=== PATIENT | male | born 1960 | race Caucasian/White ===

== ENCOUNTER 2017-11-10 15:22 | Inpatient (IN) | payer OTHER ==
[~2017-11-10] VITALS: Ht 170.2 cm; Wt 108.9 kg
[~2017-11-10 15:22] MED LIST: ABI10 PO; ACET-787 PO; ALPR1TAB2 PO; ASPI325E46 PO; COZ50 PO; DIGO0.122 PO; DOXA2TAB32 PO; FENO145T PO; FLOR250 PO; FLUO-387 PO; FLUO5CRE TP; FURO-570 PO; GLIM1TAB6 PO; ICOS1SGL PO; ISOS30TA23 PO; LACT1.4C PO; LEVO500T98 PO; LEVO750T51 PO; MELO7.5T11 PO; METF850T PO; METR500T1 PO; MSCON15 PO; PRIM250T70 PO; TADA5TAB PO; TOLT1TAB12 PO; ZET10 PO
[2017-11-10 15:35] VITALS: BP 139/75
--- NOTE | 2017-11-10 15:51 | NUR ---
PT COMES TO ED C/O BILAT LEG PAIN, SWELLING/EDEMA, AND SOB WORSENING FOR PAST 2-3 WEEKS. PT WITH H/O CHF, STATES HIS LASIX IS NOT WORKING, NEITHER IS HIS PAIN MEDICATION. PT PALCED ON ALL MONITORS, VS WNL. PLACED ON 2L O2 VIA NC PER MD ORDER. +CSM TO BILAT LOWER EXT. PENDING MD ALBARADO
[2017-11-10] MEDS ORDERED: FUROSEMIDE 40 MG/4 ML VIAL IVP SCH (16:20)
[2017-11-10] MEDS ORDERED: HYDROmorphone PFS 2 MG/ML SYR IVP ONE (16:20)
--- NOTE | 2017-11-10 16:22 | NUR ---
Patient appears to be resting comfortably in bed. Vital Signs within normal limits. Respirations even and unlabored.
[2017-11-10 16:38] LABS: BASOPHILS # (AUTO) 0.1 K/uL (0.00-0.22); BASOPHILS % (AUTO) 0.9 % (0.0-2.0); EOSINOPHILS # (AUTO) 0.2 K/uL (0-0.4); EOSINOPHILS % (AUTO) 4.1 % (0.0-4.0); HEMOGLOBIN 12.8 g/dL (12.0-18.0); LYMPHOCYTES # (AUTO) 2.1 K/uL (2.0-11.5); LYMPHOCYTES % (AUTO) 35.3 % (20.5-51.1); MEAN CORPUSCULAR HEMOGLOBIN 30 pg (27-31); MEAN CORPUSCULAR HGB CONC 33 g/dL (33-37); MEAN CORPUSCULAR VOLUME 91.9 fL (80-94); MONOCYTES # (AUTO) 0.8 K/uL (0.8-1.0); MONOCYTES % (AUTO) 14.2 % (1.7-9.3); NEUTROPHILS # (AUTO) 2.7 K/uL (1.8-7.7); NEUTROPHILS % (AUTO) 45.5 % (42.2-75.2); PLATELET COUNT (AUTO) 170 K/uL (140-450); RED BLOOD CELL COUNT(AUTO) 4.25 MIL/uL (4.20-6.10); RED CELL DISTRIBUTION WIDTH 14.9 % (11.6-13.7); WHITE BLOOD COUNT (AUTO) 5.9 K/uL (4.8-10.8)
[2017-11-10 16:59] LABS: ANION GAP 8.9 (8-16); CARBON DIOXIDE 32.6 mmol/L (21-32); POTASSIUM 3.5 mmol/L (3.5-5.1)
[2017-11-10 17:05] LABS: TOTAL BILIRUBIN 0.4 mg/dL (0.0-1.0)
--- NOTE | 2017-11-10 17:52 | NUR ---
PTS URINARL FULL AT 1000ML, EMPTIED AND PLACED AND BEDSIDE. PT REQUESTING MORE PAIN MEDICATION FOR BILAT LEG PAIN. DR BEE NOTIFIED, NO NEW ORDERS RECEIVED.
[2017-11-10 17:59] LABS: CHOL/HDL RATIO 3.4 (1-4.5)
[2017-11-10] MEDS ORDERED: HYDROcodone/APAP 7.5/325 MG 1 TAB PO PRN (18:35)
[2017-11-10] MEDS ORDERED: ONDANSETRON 4 MG/2 ML VIAL IVP PRN (18:35)
[2017-11-10] MEDS ORDERED: ACETAMINOPHEN 325 MG TAB PO PRN (18:35)
--- NOTE | 2017-11-10 19:01 | NUR ---
DR BEE NOTIFIED OF ELEVATED DDIMER RESULTS, NO NEW ORDERS RECEIVED
--- NOTE | 2017-11-10 19:13 | NUR ---
REPORT GIVEN TO ARIA LYNCH
[2017-11-10 19:23] LABS: PROTHROMBIN TIME 9.9 secs (10.8-13.4)
[2017-11-10] MEDS ORDERED: MORPHINE SULFATE 5 MG/ML VIAL IVP ONE (19:25)
[2017-11-10 19:28] LABS: FREE T4 (FREE THYROXINE) 0.86 ng/dL (0.76-1.46); MAGNESIUM 1.9 mg/dL (1.8-2.4); PHOSPHORUS 4.1 mg/dL (2.5-4.9); THYROID STIMULATING HORMONE 0.89 uIU/mL (0.34-3.74)
--- NOTE | 2017-11-10 19:40 | NUR ---
RECEIVED PATIENT FROM ER VIA [facility]. ROUTINE ADMISSION CARE DONE. CARRY OUT ORDER.FALL PRECAUTION IMPLEMENTED. DISCUSS PLAN OF CARE. CALL LIGHTS WITHIN REACH. WILL CONTINUE TO MONITOR.
--- NOTE | 2017-11-10 19:42 | NUR ---
Pt report given to KAVON KNAPP. Transfer of care at this time.
[2017-11-10 20:00] VITALS: BP 138/66
[2017-11-10] MEDS ORDERED: MORPHINE TAB ER 15 MG TABER PO PRN (20:25)
[2017-11-10] MEDS ORDERED: ALPRAZolam 0.5 MG TAB PO PRN (20:25)
[2017-11-10] MEDS ORDERED: DEXTROSE 50% 50 ML SYR IVP PRN (20:35)
[2017-11-10] MEDS: metFORMIN 850 MG TAB PO SCH ×2 (21:00→21:44)
[2017-11-10] MEDS ORDERED: ARIPiprazole 10 MG TAB PO SCH (21:00)
[2017-11-10] MEDS: ZOLPIDEM 10 MG TAB PO SCH (21:43)
[2017-11-10] MEDS: EZETIMIBE 10 MG TAB PO SCH (21:44)
[2017-11-10] MEDS: DOCUSATE SODIUM 100 MG GELCAP PO SCH (21:45)
[2017-11-10] MEDS: BLOOD GLUCOSE MONITORING 1 DEV DEV FS SCH (21:54)
[2017-11-10] MEDS: DOXAZOSIN 2 MG TAB PO SCH (21:55)
--- NOTE | 2017-11-10 22:10 | NUR ---
SEEN PATIENT ASLEEP IN BED. FALL PRECAUTION IMPLEMENTED .CALL LIGHTS WITHIN REACH. WILL CONTINUE TO MONITOR.
[2017-11-11] VITALS: BP 107/53
[2017-11-11] MEDS: HYDROcodone/APAP 10/325 MG 1 TAB TAB PO PRN ×3 (01:04→12:02)
[2017-11-11] MEDS ORDERED: MORPHINE TAB ER 15 MG TABER PO ONE (02:59)
[2017-11-11 04:00] VITALS: BP 119/59
--- NOTE | 2017-11-11 05:30 | NUR ---
SEEN PATIENT SITTING IN THE SIDE OF THE BED JUST GET OUT FROM THE BATHROOM. ASSIST PATIENT BACK TO BED WITH OXYGEN ON 2L NC. BED IN LOW POSITION. CALL LIGHT WITHIN REACH. WILL CONTINUE TO MONITOR.
[2017-11-11] MEDS: BLOOD GLUCOSE MONITORING 1 DEV DEV FS SCH ×4 (05:48→21:27)
--- NOTE | 2017-11-11 07:14 | NUR ---
RECEIVED REPORT FROM NIGHTSHIFT NURSE AT BEDSIDE. PATIENT IS ASLEEP BUT AROUSABLE TO NAME. PATIENT IS ON 2LITERS VIA NASAL CANNULA. PATIENT PRESENTS IN SEMI-FOWLERS POSITION WITH BREATHING SYMMETRICAL AND UNLABORED. PATIENT HAS AN IV ON HIS RIGHT HAND 20G SALINE LOCKED. PATIENT HAS SWELLING OF BILATERAL LEGS WITH PAIN UPON PALPATION. PATIENT HAS 2+ PITTING EDEMA. CALL LIGHT WITHIN REACH OF PATIENT. INSTRUCTED PATIENT TO CALL IF HE NEEDS HELP AMBULATING. APPROPRIATE SIGNS OUTSIDE OF PATIENT'S ROOM. WILL CONTINUE TO MONITOR PATIENT.
--- NOTE | 2017-11-11 07:14 | NUR ---
ENDORSED PATIENT TO AM SHIFT RN FOR CONTINUITY OF CARE. PATIENT IN STABLE CONDITION.
[2017-11-11 07:21] LABS: BASOPHILS % (AUTO) 0.8 % (0.0-2.0); EOSINOPHILS # (AUTO) 0.3 K/uL (0-0.4); EOSINOPHILS % (AUTO) 4.5 % (0.0-4.0); HEMATOCRIT 41.4 % (36-52); HEMOGLOBIN 13.6 g/dL (12.0-18.0); LYMPHOCYTES # (AUTO) 2.1 K/uL (2.0-11.5); LYMPHOCYTES % (AUTO) 35.7 % (20.5-51.1); MEAN CORPUSCULAR HEMOGLOBIN 30 pg (27-31); MEAN CORPUSCULAR HGB CONC 33 g/dL (33-37); MEAN CORPUSCULAR VOLUME 91.1 fL (80-94); MONOCYTES # (AUTO) 0.8 K/uL (0.8-1.0); NEUTROPHILS # (AUTO) 2.6 K/uL (1.8-7.7); PLATELET COUNT (AUTO) 178 K/uL (140-450); RED BLOOD CELL COUNT(AUTO) 4.54 MIL/uL (4.20-6.10); WHITE BLOOD COUNT (AUTO) 5.9 K/uL (4.8-10.8)
[2017-11-11 07:26] LABS: ANION GAP 11.4 (8-16); CARBON DIOXIDE 30.3 mmol/L (21-32); CREATININE 0.9 mg/dL (0.7-1.3); POTASSIUM 3.7 mmol/L (3.5-5.1)
[2017-11-11] MEDS ORDERED: metFORMIN 850 MG TAB PO SCH (07:38)
[2017-11-11 07:40] LABS: MAGNESIUM 1.9 mg/dL (1.8-2.4); PHOSPHORUS 4.6 mg/dL (2.5-4.9)
[2017-11-11 08:00] VITALS: BP 107/54
[2017-11-11] MEDS ORDERED: FLUoxetine 20 MG CAP PO SCH (09:00)
[2017-11-11] MEDS ORDERED: TOLTERODINE LA 4 MG CAPER PO SCH (09:00)
[2017-11-11] MEDS ORDERED: PRIMIDONE 250 MG TAB PO SCH (09:00)
[2017-11-11] MEDS ORDERED: FENOFIBRATE 48 MG TAB PO SCH (09:00)
[2017-11-11] MEDS ORDERED: ASPIRIN 325 MG TABEC PO SCH (09:00)
[2017-11-11] MEDS ORDERED: PRIMIDONE 50 MG TAB PO SCH (09:00)
[2017-11-11] MEDS ORDERED: LOSARTAN 50 MG TAB PO SCH (09:00)
[2017-11-11] MEDS ORDERED: DIGOXIN 0.125 MG TAB PO SCH (09:00)
[2017-11-11] MEDS ORDERED: FUROSEMIDE 40 MG/4 ML VIAL IVP SCH (09:00)
[2017-11-11] MEDS ORDERED: ECOTRIN 81 MG TABEC PO SCH (09:00)
[2017-11-11] MEDS: GLIMEPIRIDE 2 MG TAB PO SCH (09:05)
[2017-11-11] MEDS: ISOSORBIDE DINITRATE 10 MG TAB PO SCH ×3 (09:06→17:00)
[2017-11-11] MEDS: DOCUSATE SODIUM 100 MG GELCAP PO SCH ×2 (09:11→21:19)
--- NOTE | 2017-11-11 09:24 | NUR ---
PATIENT TOOK ALL AM MEDICATIONS. HELD LANOXIN BECAUSE OF PATIENT'S DECREASED PULSE. PATIENT SHOWS NO RESPIRATORY DISTRESS. ENCOURAGED PATIENT TO SIT IN HIGH FOWLERS POSITION TO HELP HIM BREATHE BETTER. PATIENT UNDERSTOOD INSTRUCTIONS. WILL CONTINUE TO MONITOR PATIENT.
--- NOTE | 2017-11-11 11:22 | NUR ---
PATIENT RESTING AT THIS TIME. NO RESPIRATORY DISTRESS. WILL CONTINUE TO MONITOR PATIENT.
--- NOTE | 2017-11-11 11:36 | NUR ---
CM NOTE INITIAL REVIEW DONE
[2017-11-11 12:00] VITALS: BP 133/83
--- NOTE | 2017-11-11 13:00 | NUR ---
PATIENT AT BEDSIDE. WANTS TO TALK TO ATTENDING REGARDING PATIENT'S MEDICATION. WILL NOTIFY
[2017-11-11] MEDS ORDERED: ALPR1TAB2 PO (13:38)
[2017-11-11] MEDS ORDERED: MORPHINE TAB ER 15 MG TABER PO PRN (13:40)
[2017-11-11] MEDS ORDERED: ALPRAZolam 0.5 MG TAB PO PRN ×2 (13:45→17:20)
--- NOTE | 2017-11-11 14:06 | NUR ---
PATIENT AT BEDSIDE. PATIENT IS ASLEEP AT THIS TIME. NO COMPLAINTS. BLOOD PRESSURE STABLE. ADMINISTERED ISOSORBIDE TO PATIENT. WILL CONTINUE TO MONITOR PATIENT.
[2017-11-11] MEDS ORDERED: FUROSEMIDE 20 MG/2 ML VIAL IVP SCH (14:08)
--- NOTE | 2017-11-11 14:20 | NUR ---
PATIENT BLOOD PRESSURE IS 102/49, 65. HELD PATIENT'S LASIX 20MG/2ML. PATIENT IS ASYMPTOMATIC. PATIENT AT BEDSIDE. WILL CONTINUE TO MONITOR PATIENT.
--- NOTE | 2017-11-11 14:57 | NUR ---
PATIENT HAS BEEN SCREENED AND CATEGORIZED MODERATE NUTRITION RISK. PATIENT WILL BE SEEN WITHIN 3-5 DAYS OF ADMISSION. 11/14/17 - 11/16/[address]
[2017-11-11 16:00] VITALS: BP 114/51
--- NOTE | 2017-11-11 16:00 | NUR ---
PATIENT ASLEEP AT THIS TIME. NO COMPLAINTS OF PAIN. WILL CONTINUE TO MONITOR PATIENT.
[2017-11-11] MEDS ORDERED: FUROSEMIDE 40 MG TAB PO SCH (17:00)
[2017-11-11] MEDS: FUROSEMIDE 40 MG/4 ML VIAL IVP SCH (17:26)
--- NOTE | 2017-11-11 19:25 | NUR ---
GAVE REPORT TO NIGHTSHIFT NURSE AT BEDSIDE. PATIENT IN STABLE CONDITION.
--- NOTE | 2017-11-11 19:25 | NUR ---
RECEIVED PATIENT REPORT AT BEDSIDE. PATIENT AWAKE AND ALERT. NO S/S OF DISTRESS. PATIENT ON HIS CPAP. IV LINE NOTED TO THE LEFT HAND SALINE LOCKED. PATIENT ON TELE MONITORING. BED LOWERED WITH CALL LIGHT WITHIN REACH. WILL CONTINUE TO MONITOR
[2017-11-11 20:00] VITALS: BP 100/42
[2017-11-11] MEDS: DOXAZOSIN 2 MG TAB PO SCH (21:00)
[2017-11-11] MEDS: ZOLPIDEM 10 MG TAB PO SCH (21:20)
[2017-11-11] MEDS: MORPHINE TAB ER 30 MG TABER PO SCH (21:20)
[2017-11-11] MEDS: EZETIMIBE 10 MG TAB PO SCH (21:20)
[2017-11-11 21:23] LABS: APPEARANCE,URINE CLEAR (CLEAR); BILIRUBIN,URINE NEGATIVE (NEGATIVE); BLOOD, URINE NEGATIVE (NEGATIVE); COLOR,URINE YELLOW (YELLOW); LEUKOCYTE ESTERASE ,URINE NEGATIVE (NEGATIVE); NITRITE, URINE NEGATIVE (NEGATIVE); UGLUCOSE NEGATIVE (NEGATIVE)
[2017-11-11 21:49] LABS: BARBITURATE, URINE NEG. ng/ml (NEG <=200); BENZODIAZEPINE, URINE POS. ng/mL (NEG <=200); CANNABINOID, URINE POS. ng/mL (NEG <=50); COCAINE, URINE NEG. ng/mL (NEG <=300); OPIATE, URINE POS. ng/mL (NEG <=2000); PHENCYCLIDINE SCREEN,URINE NEG. ng/mL (NEG <=25)
--- NOTE | 2017-11-11 23:28 | NUR ---
PATIENT ASLEEP IN BED. NO S/S OF DISTRESS NOTED
[2017-11-12] VITALS: BP 99/47
[2017-11-12 04:00] VITALS: BP 103/55
--- NOTE | 2017-11-12 04:00 | NUR ---
PATIENT ASLEEP WHILE SITTING IN THE CHAIR AT BEDSIDE. NO S/S OF DISTRESS NOTED
[2017-11-12] MEDS: BLOOD GLUCOSE MONITORING 1 DEV DEV FS SCH ×4 (06:16→21:22)
--- NOTE | 2017-11-12 07:29 | NUR ---
PATIENT REPORT GIVEN AT BEDSIDE. PATIENT ENDORSED IN STABLE CONDITION
--- NOTE | 2017-11-12 07:30 | NUR ---
RECEIVED REPORT FROM SHUTTLE INSPECTOR NURSE. PATIENT IS AAOX4. PATIENT IS ON CPAP MACHINE. NO S/S OF ACUTE DISTRESS. IV ON HIS RIGHT HAND 20G, SL, FLUSHED, ASYMPTOMATIC. EDEMA 2+ NOTED TO BILATERAL LEGS WITH PAIN UPON PALPATION. CALL LIGHT WITHIN REACH OF PATIENT. INITIAL ASSESSMENT DONE. PLAN OF FALL PRECAUTIONS IN PLACE. BED IN LOW POSITION. WILL CONTINUE TO MONITOR.
[2017-11-12 08:00] VITALS: BP 118/61
[2017-11-12] MEDS: ISOSORBIDE DINITRATE 10 MG TAB PO SCH ×3 (08:40→17:35)
[2017-11-12 08:41] LABS: BASOPHILS % (AUTO) 0.7 % (0.0-2.0); EOSINOPHILS # (AUTO) 0.2 K/uL (0-0.4); EOSINOPHILS % (AUTO) 4.2 % (0.0-4.0); HEMATOCRIT 40.6 % (36-52); HEMOGLOBIN 13.6 g/dL (12.0-18.0); LYMPHOCYTES # (AUTO) 1.6 K/uL (2.0-11.5); LYMPHOCYTES % (AUTO) 27.7 % (20.5-51.1); MEAN CORPUSCULAR HEMOGLOBIN 31 pg (27-31); MEAN CORPUSCULAR HGB CONC 34 g/dL (33-37); MEAN CORPUSCULAR VOLUME 91.6 fL (80-94); MONOCYTES # (AUTO) 0.8 K/uL (0.8-1.0); MONOCYTES % (AUTO) 13.1 % (1.7-9.3); NEUTROPHILS # (AUTO) 3.1 K/uL (1.8-7.7); NEUTROPHILS % (AUTO) 54.3 % (42.2-75.2); PLATELET COUNT (AUTO) 187 K/uL (140-450); RED BLOOD CELL COUNT(AUTO) 4.43 MIL/uL (4.20-6.10); RED CELL DISTRIBUTION WIDTH 14.6 % (11.6-13.7); WHITE BLOOD COUNT (AUTO) 5.8 K/uL (4.8-10.8)
[2017-11-12] MEDS: MORPHINE TAB ER 30 MG TABER PO SCH ×2 (08:41→21:19)
[2017-11-12] MEDS: GLIMEPIRIDE 2 MG TAB PO SCH (08:42)
[2017-11-12] MEDS: FUROSEMIDE 40 MG/4 ML VIAL IVP SCH ×2 (08:46→17:35)
[2017-11-12] MEDS ORDERED: DEXAMETHASONE 10 MG/ML VIAL IVP SCH (08:50)
[2017-11-12] MEDS: DIGOXIN 0.125 MG TAB PO SCH (08:54)
[2017-11-12] MEDS: DOCUSATE SODIUM 100 MG GELCAP PO SCH ×2 (09:00→21:18)
[2017-11-12 09:20] LABS: ANION GAP 10.7 (8-16); CARBON DIOXIDE 29.8 mmol/L (21-32); CREATININE 0.8 mg/dL (0.7-1.3); POTASSIUM 3.5 mmol/L (3.5-5.1)
[2017-11-12 09:27] LABS: MAGNESIUM 1.8 mg/dL (1.8-2.4); PHOSPHORUS 4.3 mg/dL (2.5-4.9)
--- NOTE | 2017-11-12 11:00 | NUR ---
PT STATED THE DECADRON HELP HIM A LOT WITH BACK PAIN. DISCUSSED WITH DR HENRIQUEZ AND MD WILL TAPER IT OFF.
[2017-11-12 12:00] VITALS: BP 120/62
--- NOTE | 2017-11-12 12:20 | NUR ---
PT SAT DOWN ON CHAIR AND EATING LUNCH. NO S/S OF ACUTE DISTRESS.
[2017-11-12] MEDS: HYDROcodone/APAP 10/325 MG 1 TAB TAB PO PRN (14:57)
[2017-11-12 16:00] VITALS: BP 116/65
[2017-11-12] MEDS: INSULIN LISPRO SLIDING SCALE 100 UNITS/ML VIAL SUBQ PRN ×2 (17:43→21:34)
--- NOTE | 2017-11-12 19:15 | NUR ---
RECEIVED PATIENT REPORT AT BEDSIDE. PATIENT AWAKE, ALERT AND ORIENTED. NO S/S OF DISTRESS. PATIENT ON ROOM AIR. NO SOB. PATIENT ON TELE MONITORING. IV LINE NOTED TO HIS LEFT HAND SALINE LOCKED. BED LOWERED WITH CALL LIGHT WITHIN REACH. WILL CONTINUE TO MONITOR
--- NOTE | 2017-11-12 19:30 | NUR ---
ENDORSED PT TO STRIPPER CUTTER MACHINE RN, PT IN STABLE CONDITION.
[2017-11-12 19:42] VITALS: BP 127/76
--- NOTE | 2017-11-12 21:15 | NUR ---
PATIENT SITTING ON THE CHAIR AT BEDSIDE. ADMINISTERED DUE MEDICATIONS. WILL CONTINUE TO MONITOR
[2017-11-12] MEDS: EZETIMIBE 10 MG TAB PO SCH (21:18)
[2017-11-12] MEDS: ZOLPIDEM 10 MG TAB PO SCH (21:19)
[2017-11-12] MEDS: DOXAZOSIN 2 MG TAB PO SCH (21:20)
[2017-11-13] VITALS: BP 111/66
[2017-11-13] MEDS: HYDROcodone/APAP 10/325 MG 1 TAB TAB PO PRN (00:41)
--- NOTE | 2017-11-13 02:00 | NUR ---
PATIENT ASLEEP IN BED. NO S/S OF DISTRESS NOTED
[2017-11-13 04:00] VITALS: BP 126/65
[2017-11-13] MEDS: BLOOD GLUCOSE MONITORING 1 DEV DEV FS SCH ×2 (06:02→12:19)
[2017-11-13] MEDS: INSULIN LISPRO SLIDING SCALE 100 UNITS/ML VIAL SUBQ PRN (06:04)
--- NOTE | 2017-11-13 07:16 | NUR ---
PATIENT REPORT GIVEN AT BEDSIDE. PATIENT ENDORSED IN STABLE CONDITION
--- NOTE | 2017-11-13 07:30 | NUR ---
RECEIVED REPORT FROM FREELANCE DESIGNER NURSE. PATIENT IS AAOX4. PATIENT IS ON CPAP MACHINE. NO S/S OF ACUTE DISTRESS. IV ON HIS RIGHT HAND 20G, SL, FLUSHED, ASYMPTOMATIC. EDEMA 2+ NOTED TO BILATERAL LEGS WITH PAIN UPON PALPATION. CALL LIGHT WITHIN REACH OF PATIENT. INITIAL ASSESSMENT DONE. PLAN OF FALL PRECAUTIONS IN PLACE. BED IN LOW POSITION. WILL CONTINUE TO MONITOR.
[2017-11-13 08:00] VITALS: BP 132/70
--- NOTE | 2017-11-13 08:10 | NUR ---
PT SITING IN CHAIR AND EATING BREAKFAST. NO S/S OF DISTRESS.
[2017-11-13 08:22] LABS: BASOPHILS # (AUTO) 0.2 K/uL (0.00-0.22); HEMOGLOBIN 14.6 g/dL (12.0-18.0); MEAN CORPUSCULAR VOLUME 91.3 fL (80-94); MONOCYTES # (AUTO) 0.6 K/uL (0.8-1.0); NEUTROPHILS # (AUTO) 7.7 K/uL (1.8-7.7)
[2017-11-13 08:32] LABS: EOSINOPHILS % (AUTO) 0.1 % (0.0-4.0); LYMPHOCYTES # (AUTO) 1.3 K/uL (2.0-11.5); MEAN CORPUSCULAR HEMOGLOBIN 30 pg (27-31); MEAN CORPUSCULAR HGB CONC 33 g/dL (33-37); MONOCYTES % (AUTO) 6.5 % (1.7-9.3); RED BLOOD CELL COUNT(AUTO) 4.92 MIL/uL (4.20-6.10); RED CELL DISTRIBUTION WIDTH 14.1 % (11.6-13.7); WHITE BLOOD COUNT (AUTO) 9.8 K/uL (4.8-10.8)
[2017-11-13 08:34] LABS: ANION GAP 10.1 (8-16); CARBON DIOXIDE 29.9 mmol/L (21-32); CREATININE 0.8 mg/dL (0.7-1.3)
[2017-11-13] MEDS: DOCUSATE SODIUM 100 MG GELCAP PO SCH (08:40)
[2017-11-13] MEDS: ISOSORBIDE DINITRATE 10 MG TAB PO SCH ×2 (08:41→13:13)
[2017-11-13] MEDS: GLIMEPIRIDE 2 MG TAB PO SCH (08:41)
[2017-11-13] MEDS: MORPHINE TAB ER 30 MG TABER PO SCH (08:41)
[2017-11-13] MEDS: FUROSEMIDE 40 MG/4 ML VIAL IVP SCH (08:42)
[2017-11-13] MEDS: DIGOXIN 0.125 MG TAB PO SCH (08:42)
[2017-11-13 08:44] LABS: PHOSPHORUS 4.2 mg/dL (2.5-4.9)
[2017-11-13 08:57] LABS: PLATELET COUNT (AUTO) 229 K/uL (140-450)
[2017-11-13 08:58] LABS: LYMPHOCYTES % (AUTO) 13.2 % (20.5-51.1); NEUTROPHILS % (AUTO) 78.2 % (42.2-75.2)
[2017-11-13] MEDS ORDERED: FURO-570 PO (11:24)
[2017-11-13] MEDS ORDERED: PRED10TA5 PO (11:24)
[2017-11-13 12:00] VITALS: BP 143/85
--- NOTE | 2017-11-13 12:05 | NUR ---
VITALS TAKEN. NO S/S OF ACUTE DISTRESS.
--- NOTE | 2017-11-13 13:00 | NUR ---
DISCHARGE PER MD ORDER. DISCHARGE INSTRUCTIONS AND MED TEACHING GIVEN. NO S/S OF ACUTE DISTRESS AT THIS TIME. BACK PAIN 10/08 TOLERABLE. RX PROVIDED. PT VERBALIZED UNDERSTANDING. PT PACKED ALL HIS BELONGINGS. WAITING FOR HIS . ALL DISCHARGE PAPER SIGNED.
--- NOTE | 2017-11-13 15:40 | NUR ---
IS HERE TO PIT TANNER PT. IV CATH DC'D, TIP INTACT, PRESSURE APPLIED. WRIST BAND REMOVED. WHEEL PT TO HIS VEHICLE. NO S/S OF ACUTE DISTRESS.
== END 2017-11-13 15:50 | disposition home or self-care (01) | DRG 291 ==
LOC: MED 15:22 → MTU 18:39
PROVIDERS: ADMIT Family Medicine Sports Medicine; ATTEND Family Medicine Sports Medicine
DX: I11.0 Hypertensive heart disease with heart failure (principal); N17.0 Acute kidney failure with tubular necrosis; E44.0 Moderate protein-calorie malnutrition; D68.59 Other primary thrombophilia; E11.51 Type 2 diabetes mellitus with diabetic peripheral angiopathy without gangrene; I50.43 Acute on chronic combined systolic (congestive) and diastolic (congestive) heart failure; E78.5 Hyperlipidemia, unspecified; G47.33 Obstructive sleep apnea (adult) (pediatric); F41.8 Other specified anxiety disorders; N40.0 Benign prostatic hyperplasia without lower urinary tract symptoms; M48.00 Spinal stenosis, site unspecified; F32.9 Major depressive disorder, single episode, unspecified; G47.00 Insomnia, unspecified; G89.29 Other chronic pain; M54.9 Dorsalgia, unspecified; E66.9 Obesity, unspecified; M47.9 Spondylosis, unspecified; Z95.0 Presence of cardiac pacemaker; Z83.3 Family history of diabetes mellitus; Z82.49 Family history of ischemic heart disease and other diseases of the circulatory system; I25.2 Old myocardial infarction; Z74.01 Bed confinement status; Z88.0 Allergy status to penicillin; Z88.8 Allergy status to other drugs, medicaments and biological substances; Z68.37 Body mass index [BMI] 37.0-37.9, adult; Z79.84 Long term (current) use of oral hypoglycemic drugs; Z79.899 Other long term (current) drug therapy; Z79.82 Long term (current) use of aspirin
CPT/HCPCS: 36415; 71045; 80048; 80053; 80162; 80305; 81003; 82150; 82550; 82553; 82948; 83036; 83690; 83735; 83880; 84100; 84439; 84443; 84484; 85025; 85379; 85610; 85730; 87081; 93005; 93925; 93970; 96374; 96375; 99285; J1100; J1170; J1815; J1940; Q0092

== ENCOUNTER 2018-01-16 13:46 | Inpatient (IN) | payer OTHER ==
[~2018-01-16] VITALS: Ht 167.6 cm; Wt 112.9 kg
[~2018-01-16 13:46] MED LIST changes: -FLOR250 PO; -LACT1.4C PO; -LEVO500T98 PO; -LEVO750T51 PO; -METR500T1 PO; +PRED10TA5 PO
[2018-01-16 13:49] VITALS: BP 147/77
--- NOTE | 2018-01-16 14:02 | NUR ---
PT COMES TO ER FROM HOME S/P SLIP AND FALL SECONDARY TO WATER ON THE FLOOR. C/O RT SHOULDER AND LEFT LEG PAIN. NO OBVIOUS DEFORMITY NOTED. RESP EVEN AND UNLABORED, PT DENIES ANY ACUTE CHEST PAIN, BUT DOES REPORTS SOB. DENIES NUMBNESS/TINGLING. DENIES ANY FEVERS /CHILLS. PT DOES REPORT CHF AND INCREASED EDEMA FOR THE LAST SEVERAL DAYS. SKIN W/D/I. +2 PEDAL EDEMA. LS-CLR CECILIA. ABD LARGE, DISTENDED, BUT NORMAL FOR PT, SOFT, NON TENDER IN PALPATION. IV SL TO BE INSERTED, EKG DONE AT BEDSIDE.
--- NOTE | 2018-01-16 14:06 | NUR ---
DR SUAZO AT BEDSIDE FOR EXAM.
[2018-01-16] MEDS ORDERED: ASPIRIN 81 MG TAB.CHEW PO ONE (14:15)
[2018-01-16] MEDS ORDERED: MORPHINE SULFATE 2 MG/ML SYR IVP ONE ×2 (14:15→15:30)
[2018-01-16] MEDS ORDERED: NITROGLYCERIN 2% 1 GM PKT TP ONE (14:15)
[2018-01-16] MEDS ORDERED: METOCLOPRAMIDE 10 MG/2 ML INJ VIAL IVP ONE (14:15)
[2018-01-16 14:30] LABS: BASOPHILS # (AUTO) 0.1 K/uL (0.00-0.22); BASOPHILS % (AUTO) 0.8 % (0.0-2.0); EOSINOPHILS # (AUTO) 0.4 K/uL (0-0.4); EOSINOPHILS % (AUTO) 4.1 % (0.0-4.0); LYMPHOCYTES # (AUTO) 2.8 K/uL (2.0-11.5); LYMPHOCYTES % (AUTO) 31.2 % (20.5-51.1); MEAN CORPUSCULAR HEMOGLOBIN 30 pg (27-31); MEAN CORPUSCULAR HGB CONC 34 g/dL (33-37); MEAN CORPUSCULAR VOLUME 87.9 fL (80-94); MONOCYTES # (AUTO) 1.2 K/uL (0.8-1.0); MONOCYTES % (AUTO) 12.8 % (1.7-9.3); NEUTROPHILS # (AUTO) 4.6 K/uL (1.8-7.7); NEUTROPHILS % (AUTO) 51.1 % (42.2-75.2); PLATELET COUNT (AUTO) 232 K/uL (140-450); RED BLOOD CELL COUNT(AUTO) 3.98 MIL/uL (4.20-6.10); RED CELL DISTRIBUTION WIDTH 15.7 % (11.6-13.7)
--- NOTE | 2018-01-16 15:02 | NUR ---
Patient appears to be resting comfortably in bed. Vital Signs within normal limits. Respirations even and unlabored. AROUSABLE TO VOICE. PENDING LABS/XRAY
[2018-01-16 15:08] LABS: ANION GAP 8.9 (8-16); CARBON DIOXIDE 31.6 mmol/L (21-32); CREATININE 0.9 mg/dL (0.7-1.3); POTASSIUM 3.5 mmol/L (3.5-5.1)
[2018-01-16 15:13] LABS: ALBUMIN 3.2 g/dL (3.4-5.0); TOTAL BILIRUBIN 0.4 mg/dL (0.0-1.0)
[2018-01-16] MEDS ORDERED: ONDANSETRON 4 MG/2 ML VIAL IM/IVP PRN (16:10)
[2018-01-16] MEDS ORDERED: HYDROcodone/APAP 7.5/325 MG 1 TAB PO PRN (16:10)
[2018-01-16] MEDS ORDERED: NACL 0.9% 1,000 ML IV SCH (16:10)
[2018-01-16] MEDS ORDERED: ACETAMINOPHEN 325 MG TAB PO PRN (16:10)
[2018-01-16] MEDS ORDERED: DOCUSATE SODIUM 100 MG GELCAP PO PRN (16:10)
[2018-01-16 16:47] LABS: PROTHROMBIN TIME 10.6 secs (10.8-13.4)
--- NOTE | 2018-01-16 16:49 | NUR ---
Patient will be admitted to care of DR REESE. Admited to TELE. Will go to [id number]. Belongings list completed. Report to GERRY KNAPP.
[2018-01-16 16:50] VITALS: BP 121/71
--- NOTE | 2018-01-16 16:50 | NUR ---
PATIENT ARRIVED FROM ER BED/GURNEY, ABLE TO AMBULATE WITH STEADY GAIT FROM ER BED/GURNEY TO RUST BED. NO DISTRESS NOTED. RESPIRATIONS EVEN, UNLABORED, ON ROOM AIR. AAOX4, CALM, COOPERATIVE, SKIN COLOR APPROPRIATE TO ETHNICITY, WARM TO TOUCH. SKIN IS INTACT. LUNGS CTA ON ALL LOBES. ABDOMEN SOFT, NON-DISTENDED. +3 PITTING B/L LE EDEMA NOTED. IV SITE INTACT, PATENT, ON SALINE LOCK. ORIENTED PATIENT TO ROOM AND CALL LIGHT. REVIEWED PLAN OF CARE WITH PATIENT. SAFETY MEASURES IN PLACE, CALL LIGHT WITHIN REACH. WILL CONTINUE TO MONITOR.
[2018-01-16 17:00] LABS: MAGNESIUM 1.7 mg/dL (1.8-2.4); PHOSPHORUS 3.5 mg/dL (2.5-4.9); THYROID STIMULATING HORMONE 0.6 uIU/mL (0.34-3.74)
[2018-01-16] MEDS ORDERED: FUROSEMIDE 40 MG/4 ML VIAL IVP SCH (18:19)
[2018-01-16] MEDS ORDERED: INSULIN LISPRO SLIDING SCALE 100 UNITS/ML VIAL SUBQ PRN (18:20)
[2018-01-16] MEDS ORDERED: DEXTROSE 50% 50 ML SYR IVP PRN (18:20)
--- NOTE | 2018-01-16 18:33 | NUR ---
PATIENT SITTING IN BEDSIDE CHAIR. NO DISTRESS NOTED. COMPLAINTS OF 5/10 ON B/L MD TORITO ALREADY AWARE AND IS PERFORMING MEDICATION RECONCILIATION. SCHEDULED MEDICATIONS DUE GIVEN. SAFETY MEASURES IN PLACE, CALL LIGHT WITHIN REACH. WILL CONTINUE TO MONITOR.
[2018-01-16 18:40] LABS: APPEARANCE,URINE CLEAR (CLEAR); BILIRUBIN,URINE NEGATIVE (NEGATIVE); BLOOD, URINE NEGATIVE (NEGATIVE); LEUKOCYTE ESTERASE ,URINE NEGATIVE (NEGATIVE); NITRITE, URINE NEGATIVE (NEGATIVE); UGLUCOSE NEGATIVE (NEGATIVE)
[2018-01-16 18:43] LABS: COLOR,URINE STRAW (YELLOW)
[2018-01-16 18:48] LABS: BARBITURATE, URINE NEG. ng/ml (NEG <=200); BENZODIAZEPINE, URINE POS. ng/mL (NEG <=200); CANNABINOID, URINE POS. ng/mL (NEG <=50); COCAINE, URINE NEG. ng/mL (NEG <=300); OPIATE, URINE POS. ng/mL (NEG <=2000); PHENCYCLIDINE SCREEN,URINE NEG. ng/mL (NEG <=25)
[2018-01-16] MEDS ORDERED: MORPHINE TAB ER 15 MG TABER PO SCH ×2 (19:00→21:00)
--- NOTE | 2018-01-16 19:34 | NUR ---
GAVE REPORT TO SEAMAN OFFICER NURSE FOR CONTINUITY OF CARE. PATIENT IN STABLE CONDITION.
--- NOTE | 2018-01-16 19:35 | NUR ---
RECEIVED REPORT FROM DAY SHIFT NURSE NICOLAS-RN. AAOX4, ON ROOM AIR WITH IV ON LEFT FA #20G-SL. +3 PITTING B/L LE EDEMA NOTED. NO S/S OF RESPIRATORY DISTRESS NOTED HOWEVER PT IN PAIN THAT IS INCREASING. WILL BE ADMINISTERING SCHEDULED PAIN MEDICATION. DISCUSSED PLAN OF CARE AND PT VERBALIZED UNDERSTANDING. UPDATED WHITE BOARD. BED IN LOWEST POSITION, BED BREAKS ON, SIDE RAILS UP. BED SIDE TABLE AND CALL LIGHT WITHIN REACH. WILL CONTINUE TO MONITOR.
--- NOTE | 2018-01-16 19:58 | NUR ---
CHECKED ON PATIENT. PT HAS CPAP NOC ORDER. PT STATED HE WANTS TO START USING AROUND 2130. WILL COME AT THIS TIME AND START CPAP.
[2018-01-16 20:00] VITALS: BP 120/56
[2018-01-16] MEDS ORDERED: MAG SULF 2000 MG/WATER PREMIX 50 ML IV SCH (20:00)
--- NOTE | 2018-01-16 20:00 | NUR ---
VITAL SIGNS TAKEN AND BLOOD GLUCOSE 111-NO INSULIN COVERAGE NEEDED. PT TOLERATED WELL. PAIN CONTINUES TO INCREASE. WILL ADMINISTER SCHEDULED MEDICATION.
--- NOTE | 2018-01-16 20:20 | NUR ---
SCHEDULED MEDICATION GIVEN. PT TOLERATED WELL. WILL CONTINUE TO MONITOR.
[2018-01-16] MEDS: EZETIMIBE 10 MG TAB PO SCH (20:39)
[2018-01-16] MEDS: DOXAZOSIN 2 MG TAB PO SCH (20:40)
--- NOTE | 2018-01-16 20:40 | NUR ---
SCHEDULED MEDICATION GIVEN AND TOLERATED WELL. PT CONTINUES TO C/O PAIN AFTER SCHEDULED PAIN MEDICATION GIVEN. TOLD PT TO GIVE THE PO MEDICATION SOME TIME TO BEGIN TO WORK. WILL CONTINUE TO MONITOR.
[2018-01-16] MEDS: BLOOD GLUCOSE MONITORING 1 DEV DEV FS SCH (20:42)
[2018-01-16] MEDS ORDERED: ARIPiprazole 10 MG TAB PO SCH (21:00)
--- NOTE | 2018-01-16 21:44 | NUR ---
PT C/O SEVERE PAIN. HOME MEDICATION MS-CONTIN ALREADY GIVEN. SPOKE WITH DR. GARCIA AND HE WILL PUT IN AN ORDER FOR MORPHINE 1MG PRN. WILL CONTINUE TO MONITOR.
[2018-01-16] MEDS ORDERED: MORPHINE SULFATE 2 MG/ML SYR IVP PRN (21:45)
--- NOTE | 2018-01-16 21:45 | NUR ---
PT REFUSED LAB DRAW FOR SECOND TROPONIN BECAUSE HE IS IN SEVERE PAIN. DR. GARCIA NOTIFIED. WILL CONTINUE TO MONITOR.
--- NOTE | 2018-01-16 22:15 | NUR ---
PT ON BIPAP AT [facility] PER DR ORDER. BIPAP CONNECTED TO RED OUTLET. ALARMS FUNCTIONING. RN AT BEDSIDE. PT IS COMFORTABLE. NO DISTRESS NOTED. WILL CONTINUE TO MONITOR.
--- NOTE | 2018-01-16 22:15 | NUR ---
MORPHINE SULFATE 1MG GIVEN IVP. NO S/S OF RESPIRATORY DISTRESS. PT TOLERATED WELL. RT RORY IN ROOM ADJUSTING BIPAP. WILL CONTINUE TO MONITOR.
--- NOTE | 2018-01-16 22:35 | NUR ---
PT C/O THAT BIPAP MACHINE IS UNCOMFORTABLE. CALLED RT RORY AND SHE STATED SHE WOULD BE COMING BACK TO PT ROOM TO TAKE OFF BIPAP AND TURN OFF MACHINE.
--- NOTE | 2018-01-16 23:04 | NUR ---
PT TOOK BIPAP OFF AND SAID HE DOES NOT WANT TO WEAR IT ANYMORE. MD GARCIA AWARE. BIPAP STANDBY AT BEDSIDE.
[2018-01-17] VITALS: BP 122/65
--- NOTE | 2018-01-17 00:15 | NUR ---
PT CONTINUES TO C/O PAIN STATING "IT'S ALL THIS WATER THAT KEEPS PRESSING AGAINST ALL MY ORGANS TO MY SKELETON. PAIN ALL OVER MY BODY, MORE THAN JUST THE SHOULDER PAIN." SPOKE WITH DR. GARCIA AND HE IS AWARE. WAITING FOR ORDERS OF LASIX AND TORADOL. WILL CONTINUE TO MONITOR.
[2018-01-17] MEDS ORDERED: KETOROLAC 15 MG/ML VIAL IVP PRN (00:20)
[2018-01-17] MEDS ORDERED: FUROSEMIDE 40 MG/4 ML VIAL IVP SCH (01:00)
--- NOTE | 2018-01-17 02:00 | NUR ---
PT SLEEPING IN BED. NO S/S OF RESPIRATORY DISTRESS OR DISCOMFORT. WILL CONTINUE TO MONITOR.
[2018-01-17 04:00] VITALS: BP 119/60
--- NOTE | 2018-01-17 04:00 | NUR ---
VITAL SIGNS TAKEN AND TOLERATED WELL. PT C/O PAIN WANTING PAIN MEDICATION. WILL ADMINISTER. NO S/S OF RESPIRATORY DISTRESS.
--- NOTE | 2018-01-17 05:00 | NUR ---
PT C/O PAIN 05/10. SPOKE WITH DR. GARCIA ABOUT PT BEING IN "EXCRUCIATING PAIN" AND HE PLACED A ORDER OF MORPHINE SULFATE 1MG/0.5ML ONCE FOR SEVERE PAIN. PT TOLERATED WELL. WILL CONTINUE TO MONITOR.
--- NOTE | 2018-01-17 05:44 | NUR ---
BLOOD GLUCOSE 104- N0 INSULIN COVERAGE REQUIRED. WILL CONTINUE TO MONITOR.
[2018-01-17] MEDS ORDERED: MORPHINE SULFATE 2 MG/ML SYR ONE (05:55)
--- NOTE | 2018-01-17 06:41 | NUR ---
PT RESTING IN BED LOOKING AT CELL PHONE. NO S/S OF RESPIRATORY DISTRESS OR DISCOMFORT AT THIS TIME. WILL CONTINUE TO MONITOR.
[2018-01-17] MEDS: BLOOD GLUCOSE MONITORING 1 DEV DEV FS SCH ×4 (07:09→20:28)
--- NOTE | 2018-01-17 07:29 | NUR ---
ENDORSED PT CARE TO DAY SHIFT NURSE PETRA FOR CONTINUITY OF CARE.
--- NOTE | 2018-01-17 07:30 | NUR ---
RECEIVED REPORT FROM LINE CAMERA OPERATOR NURSE, PT IS RESTING IN BED, AAOX4, AMBULATORY, IV ON HIS LEFT WRIST, PATENT, INTACT, FLUSHING WELL, NO S/S OF RESPIRATORY DISTRESS NOTED, PT IS COMPLAINING OF A 10/10 PAIN LEVEL, DISCUSSED PLAN OF CARE WITH PT, PT VERBALIZED UNDERSTANDING, SAFETY/FALL PRECAUTIONS ARE IN PLACE, CALL LIGHT WITHIN REACH, WILL CONTINUE TO MONITOR.
[2018-01-17 07:46] LABS: BASOPHILS % (AUTO) 0.5 % (0.0-2.0); EOSINOPHILS # (AUTO) 0.4 K/uL (0-0.4); EOSINOPHILS % (AUTO) 4.7 % (0.0-4.0); HEMATOCRIT 36.5 % (36-52); HEMOGLOBIN 12.3 g/dL (12.0-18.0); LYMPHOCYTES # (AUTO) 2.2 K/uL (2.0-11.5); LYMPHOCYTES % (AUTO) 28.8 % (20.5-51.1); MEAN CORPUSCULAR HEMOGLOBIN 30 pg (27-31); MEAN CORPUSCULAR HGB CONC 34 g/dL (33-37); MEAN CORPUSCULAR VOLUME 88.2 fL (80-94); MONOCYTES % (AUTO) 12.6 % (1.7-9.3); NEUTROPHILS # (AUTO) 4.1 K/uL (1.8-7.7); NEUTROPHILS % (AUTO) 53.4 % (42.2-75.2); PLATELET COUNT (AUTO) 245 K/uL (140-450); RED BLOOD CELL COUNT(AUTO) 4.14 MIL/uL (4.20-6.10); RED CELL DISTRIBUTION WIDTH 15.6 % (11.6-13.7); WHITE BLOOD COUNT (AUTO) 7.7 K/uL (4.8-10.8)
[2018-01-17 08:00] VITALS: BP 131/80
[2018-01-17] MEDS ORDERED: metFORMIN 850 MG TAB PO SCH (08:00)
[2018-01-17] MEDS: DIGOXIN 0.125 MG TAB PO SCH (08:09)
[2018-01-17] MEDS: FUROSEMIDE 40 MG/4 ML VIAL IVP SCH ×2 (08:09→16:36)
[2018-01-17] MEDS: ASPIRIN 325 MG TABEC PO SCH (08:09)
[2018-01-17] MEDS: ISOSORBIDE DINITRATE 10 MG TAB PO SCH ×3 (08:10→16:36)
[2018-01-17] MEDS: TOLTERODINE LA 4 MG CAPER PO SCH (08:10)
[2018-01-17] MEDS ORDERED: MORPHINE SULFATE 2 MG/ML SYR IVP PRN (08:20)
--- NOTE | 2018-01-17 08:38 | NUR ---
PATIENT HAS BEEN SCREENED AND CATEGORIZED HIGH NUTRITION RISK. PATIENT WILL BE SEEN WITHIN 1-2 DAYS OF ADMISSION. 01/17/18 01/18/[address]
[2018-01-17] MEDS ORDERED: FLUoxetine 20 MG CAP PO SCH (09:00)
[2018-01-17] MEDS ORDERED: FENOFIBRATE 48 MG TAB PO SCH (09:00)
[2018-01-17] MEDS ORDERED: LOSARTAN 50 MG TAB PO SCH (09:00)
[2018-01-17] MEDS ORDERED: PRIMIDONE 50 MG TAB PO SCH (09:00)
[2018-01-17] MEDS ORDERED: MORPHINE TAB ER 15 MG TABER PO SCH (09:00)
[2018-01-17] MEDS ORDERED: PRIMIDONE 250 MG TAB PO SCH (09:00)
[2018-01-17] MEDS: MORPHINE TAB ER 15 MG TABER PO SCH ×2 (09:00→21:00)
--- NOTE | 2018-01-17 09:05 | NUR ---
PER DR. MIGUEL DICKSON TO GIVE THE IVP MORPHINE NOW AND GIVE THE MS CONTIN 30MG STARTING TOMORROW, SINCE HE ALREADY GOT HIS 15MG OF MS CONTIN TODAY.
[2018-01-17 09:10] LABS: T4 (THYROXINE) 6.1 ug/dL (4.5-12.0)
[2018-01-17 09:11] LABS: MAGNESIUM 1.8 mg/dL (1.8-2.4); PHOSPHORUS 3.8 mg/dL (2.5-4.9)
[2018-01-17 09:28] LABS: ANION GAP 12.4 (8-16); CARBON DIOXIDE 28.4 mmol/L (21-32); CREATININE 0.9 mg/dL (0.7-1.3); POTASSIUM 3.8 mmol/L (3.5-5.1)
--- NOTE | 2018-01-17 10:15 | NUR ---
PT RESTING IN BED AT THIS TIME, CALL LIGHT IS WITHIN REACH.
[2018-01-17 12:00] VITALS: BP 159/72
[2018-01-17] MEDS: MORPHINE SULFATE 2 MG/ML SYR IVP PRN ×3 (12:35→23:24)
[2018-01-17] MEDS: LORazepam 2 MG/ML VIAL IVP PRN ×3 (13:47→21:35)
[2018-01-17 16:00] VITALS: BP 120/73
--- NOTE | 2018-01-17 16:45 | NUR ---
PT RESTING IN BED, TALKING ON HER CELL PHONE. CALL LIGHT IS WITHIN REACH.
--- NOTE | 2018-01-17 17:10 | NUR ---
DR. RIVERA SPEAKING TO PATIENT'S (LUIS MIGUEL) AT THIS TIME.
--- NOTE | 2018-01-17 19:09 | NUR ---
RECEIVED REPORT FROM DAY SHIFT NURSE NICOLAS-RN. AAOX4, ON ROOM AIR WITH IV ON LEFT FA #20G-SL. +1 PITTING B/L LE EDEMA NOTED. NO S/S OF RESPIRATORY DISTRESS OR DISCOMFORT HOWEVER PT IS ASKING FOR NEXT DOSE OF PAIN MEDICATION AND ANXIETY MEDICATION. WILL BE ADMINISTERING SCHEDULED PAIN MEDICATION. DISCUSSED PLAN OF CARE AND PT VERBALIZED UNDERSTANDING. UPDATED WHITE BOARD. BED IN LOWEST POSITION, BED BREAKS ON, SIDE RAILS UP. BED SIDE TABLE AND CALL LIGHT WITHIN REACH. WILL CONTINUE TO MONITOR.
--- NOTE | 2018-01-17 19:10 | NUR ---
ENDORSED PT TO HOME VISITS NURSE NURSE FOR CONTINUITY OF CARE, PT STABLE AT THIS TIME.
--- NOTE | 2018-01-17 19:43 | NUR ---
BLOOD GLUCOSE 129-NO INSULIN COVERAGE NEEDED. WILL CONTINUE TO MONITOR.
[2018-01-17 20:00] VITALS: BP 121/71
--- NOTE | 2018-01-17 20:00 | NUR ---
VITAL SIGNS TAKEN AND TOLERATED WELL. NO S/S OF RESPIRATORY DISTRESS OR DISCOMFORT AT THIS TIME. WILL CONTINUE TO MONITOR.
--- NOTE | 2018-01-17 20:29 | NUR ---
PT C/O INSOMNIA SINCE YESTERDAY. CALLED DR MCKEON AND SHE WILL BE PLACING ORDER FOR MORRIS.
[2018-01-17] MEDS: DOXAZOSIN 2 MG TAB PO SCH (20:59)
[2018-01-17] MEDS: EZETIMIBE 10 MG TAB PO SCH (21:00)
[2018-01-17] MEDS ORDERED: ZOLPIDEM 10 MG TAB PO SCH (21:00)
--- NOTE | 2018-01-17 21:00 | NUR ---
SCHEDULED MEDICATION GIVEN. PT EXTREMELY ANXIOUS AND CONFUSED. PT ACKNOWLEDGES HIS STATE AND BLAMES IT ON WITHDRAWALS TO NORCO. HE KEEPS CHANGING HIS STORY. SPOKE TO PT AND SAID HE WOULD PLACE ORDER FOR MORPHINE AND ATIVAN TO BE GIVEN IN ONE HOUR. WILL CONTINUE TO MONITOR.
--- NOTE | 2018-01-17 21:25 | NUR ---
PT EXTREMELY ANXIOUS WANTING "MEDICATION DR WAS GONG TO GIVE HIM." TOLD PT WE WERE WAITING FOR PHARMACY TO PROCESS ORDER. PT BECAME VERBALLY VIOLENT STATING "HE DOESN'T CARE IF HE GOES BACK TO RESIDENTIAL" BECAUSE HE "DOESN'T LIKE MY ATTITUDE" WHEN HE ASKED WHAT MEDICATIONS HE WAS WAITING FOR AGAIN. I TOLD PT THE MEDICATION HE WAS WAITING FOR IS MORPHINE SULFATE AND ATIVAN. PT CONTINUES TO BE VERBALLY ABUSIVE SO I STEPPED OUT OF THE ROOM FOR SAFETY AND SPOKE TO DR. GARCIA IN RESIDENTS ROOM AND EXPLAINED THE SITUATION. DR. GARCIA SAID TO GIVE PT ATIVAN FOR ANXIETY STAT. PT NOW IN NURSES STATION YELLING NOT WANTING ME HIS NURSE. DR. GARCIA SPEAKING TO PT. ATIVAN TAKEN OUT OF PIXIS AND GIVEN TO LADI-ARIA WHO WILL NOW BE HIS LOT BOSS NURSE.
--- NOTE | 2018-01-17 22:30 | NUR ---
PATIENT REPORT RECEIVED FROM ARIA CONNOR FOR CONTINUITY OF CARE. PATIENT IS IN STABLE CONDITION
--- NOTE | 2018-01-17 23:25 | NUR ---
PATIENT STATES THAT HE WOULD LIKE TO TALK TO TALK TO DR. GARCIA ABOUT HIS PAIN MEDS. PATIENT STATES THAT HE HAS A HIGH TOLERANCE TO PAIN MEDS. PATIENT SAYS HE WANTS TO TAKE MORPHINE AND NORCO AT THE SAME TIME. TRIED TO EDUCATE PATIENT. PATIENT WANTS TO SPEAK WITH DR GARCIA
--- NOTE | 2018-01-17 23:30 | NUR ---
DR GACRIA IN TO SEE PATIENT
[2018-01-18] VITALS: BP 144/73
[2018-01-18] MEDS ORDERED: LORazepam 2 MG/ML VIAL IVP SCH
--- NOTE | 2018-01-18 | NUR ---
MORPHINE NOT WORKING FOR PATIENT'S PAIN. DR AWARE. PER DR GARCIA GIVE 1 TIME DOSE OF ATIVAN WITH NORCO. PATIENT'S VITAL SIGNS ARE STABLE
[2018-01-18] MEDS: HYDROcodone/APAP 10/325 MG 1 TAB TAB PO PRN ×3 (00:02→16:41)
--- NOTE | 2018-01-18 01:54 | NUR ---
CHECKED ON PATIENT. PATIENT IS ASLEEP. NO SIGNS AND SYMPTOMS OF DISTRESS NOTED. BREATHING EVEN AND UNLABORED. WILL CONTINUE TO MONITOR
[2018-01-18 04:00] VITALS: BP 123/70
--- NOTE | 2018-01-18 04:00 | NUR ---
CHECKED ON PATIENT. PATIENT IS ASLEEP. NO SIGNS AND SYMPTOMS OF DISTRESS NOTED. BREATHING EVEN AND UNLABORED. WILL CONTINUE TO MONITOR
[2018-01-18] MEDS: BLOOD GLUCOSE MONITORING 1 DEV DEV FS SCH ×4 (05:40→21:08)
[2018-01-18] MEDS ORDERED: MORPHINE SULFATE 2 MG/ML SYR IVP PRN (06:20)
[2018-01-18 06:34] LABS: BASOPHILS % (AUTO) 0.6 % (0.0-2.0); EOSINOPHILS # (AUTO) 0.4 K/uL (0-0.4); EOSINOPHILS % (AUTO) 5.2 % (0.0-4.0); HEMATOCRIT 36.6 % (36-52); HEMOGLOBIN 12.3 g/dL (12.0-18.0); LYMPHOCYTES # (AUTO) 2.4 K/uL (2.0-11.5); LYMPHOCYTES % (AUTO) 32.9 % (20.5-51.1); MEAN CORPUSCULAR HEMOGLOBIN 30 pg (27-31); MEAN CORPUSCULAR HGB CONC 34 g/dL (33-37); MEAN CORPUSCULAR VOLUME 88.3 fL (80-94); MONOCYTES % (AUTO) 14.2 % (1.7-9.3); NEUTROPHILS # (AUTO) 3.4 K/uL (1.8-7.7); NEUTROPHILS % (AUTO) 47.1 % (42.2-75.2); PLATELET COUNT (AUTO) 245 K/uL (140-450); RED BLOOD CELL COUNT(AUTO) 4.14 MIL/uL (4.20-6.10); RED CELL DISTRIBUTION WIDTH 15.5 % (11.6-13.7); WHITE BLOOD COUNT (AUTO) 7.2 K/uL (4.8-10.8)
[2018-01-18 06:38] LABS: ANION GAP 9.9 (8-16); CARBON DIOXIDE 30.6 mmol/L (21-32); CREATININE 0.8 mg/dL (0.7-1.3); POTASSIUM 3.5 mmol/L (3.5-5.1)
[2018-01-18 06:47] LABS: MAGNESIUM 1.7 mg/dL (1.8-2.4); PHOSPHORUS 3.8 mg/dL (2.5-4.9)
--- NOTE | 2018-01-18 07:33 | NUR ---
PATIENT REPORT GIVEN TO MORNING NURSE AT BEDSIDE FOR CONTINUITY OF CARE. PATIENT IS IN STABLE CONDITION
--- NOTE | 2018-01-18 07:34 | NUR ---
RECEIVED REPORT FROM REGISTERED SAFETY ENGINEER RN AT BEDSIDE, PT IS AAOX4, ABLE TO FOLLOW COMMANDS AND MAKE NEEDS KNOWN, VSS, C/O PAIN TO LEGS, 05/10, WILL MEDICATED. NO S/S OF DISTRESS, CLEAR LUNG SOUNDS CECILIA. DENIES CHEST PAIN, SR ON TELE MONITOR, SOFT ABDOMEN WITH ACTIVE BOWEL SOUNDS, CONTINENT WITH B&B'S, ABLE TO WALK WITH STEADY GAIT. SKIN IS INTACT, WARM AND DRY TO TOUCH, IV SITE TO LEFT WRIST 20GA, PATENT AND SL. SAFETY MEASURES IN PLACE, CALL LIGHT WITHIN REACH, WILL CONTINUE TO MONITOR.
[2018-01-18 08:00] VITALS: BP 142/62
--- NOTE | 2018-01-18 08:45 | NUR ---
SCHEDULED MEDICATION GIVEN, PT TOLERATED WELL.
[2018-01-18] MEDS: LORazepam 2 MG/ML VIAL IVP PRN ×4 (08:52→21:10)
[2018-01-18] MEDS: MORPHINE TAB ER 15 MG TABER PO SCH ×2 (08:53→21:00)
[2018-01-18] MEDS: ISOSORBIDE DINITRATE 10 MG TAB PO SCH ×3 (08:53→16:41)
[2018-01-18] MEDS: FUROSEMIDE 40 MG/4 ML VIAL IVP SCH (08:53)
[2018-01-18] MEDS: DIGOXIN 0.125 MG TAB PO SCH (08:53)
[2018-01-18] MEDS: ASPIRIN 325 MG TABEC PO SCH (08:53)
[2018-01-18] MEDS: TOLTERODINE LA 4 MG CAPER PO SCH (08:54)
[2018-01-18 12:00] VITALS: BP 94/64
[2018-01-18] MEDS: MAG SULF 2000 MG/WATER PREMIX 100 ML IV SCH ×2 (12:00→14:27)
[2018-01-18 16:00] VITALS: BP 122/70
--- NOTE | 2018-01-18 16:44 | NUR ---
01/18/18 RD INITIAL ASSESSMENT COMPLETED PLEASE REFER TO NUTRITION ASSESSMENT UNDER CARE ACTIVITY FOR ESTIMATED NUTRITIONAL NEEDS. 1. CONTINUE CARDIAC, CCHO 60GM DIET TOLERATED 2. FOLLOW-UP NUTRITION EDUCATION FOR REDUCING SALT INTAKE, CARBOHYDRATE COUNTING, AND [address] TO FOLLOW-UP 3-5 DAYS, MODERATE RISK SATISH RIGGINS RD
--- NOTE | 2018-01-18 19:10 | NUR ---
REPORT GIVEN TO PRIZER HAND RN AT BEDSIDE FOR CONTINUE OF CARE, PT IS IN STABLE CONDITION AT THIS TIME.
--- NOTE | 2018-01-18 19:11 | NUR ---
RECEIVED REPORT AT PT BEDSIDE FROM DAY SHIFT RN, PT IS A/OX4, ON ROOM AIR AT THE MOMENT. PT ABLE TO MAKE NEEDS KNOWN, ABLE TO FOLLOW COMMANDS. RESPIRATIONS EVEN AND UNLABORED. PT SKIN IS INTACT. 20G IV TO LEFT WRIST, ASYMPTOMATIC, INTACT AND PATENT. UPDATED BOARD. DISCUSSED PLAN OF CARE WITH PT, PT VERBALIZED UNDERSTANDING. VITAL SIGNS WITHIN NORMAL LIMITS. PT STABLE, NO SIGNS OF DISTRESS NOTED AT THIS TIME. BED IN LOWEST POSITION, BED ALARM ON. CALL LIGHT WITHIN REACH, WILL CONTINUE TO MONITOR.
[2018-01-18 19:35] VITALS: BP 138/71
[2018-01-18] MEDS: DOXAZOSIN 2 MG TAB PO SCH (21:08)
[2018-01-18] MEDS: EZETIMIBE 10 MG TAB PO SCH (21:09)
--- NOTE | 2018-01-18 21:10 | NUR ---
ADMINISTERED SCHEDULED MEDICATIONS, PT TOLERATED WELL. PT REFUSED SCHEDULED PO MORPHINE AND REQUESTED PRN IV MORPHINE INSTEAD. PT ALSO REQUESTED ATIVAN. PT STABLE, NO SIGNS OF DISTRESS NOTED AT THIS TIME. BED IN LOWEST POSITION, BED ALARM ON. CALL LIGHT WITHIN REACH, WILL CONTINUE TO MONITOR.
--- NOTE | 2018-01-18 21:15 | NUR ---
PT REFUSED INSULIN COVERAGE BECAUSE HE IS ON PHONE, BLOOD SUGAR IS 162 AND PT JUST HAD ICE CREAM AND JUICE. PT STARTED TALKING TO ME ABOUT VIOLENCE TOWARDS A PREVIOUS NURSE AND STARTED SAYING PEOPLE DON'T KNOW HIM. PT STATED "I WANTED TO KNOCK HER TEETH OUT, AND I WOULD'VE DONE IT TOO." THEN PT CONTINUED TO TALK TO SOMEONE ELSE ON THE PHONE.
[2018-01-19] VITALS: BP 137/71
--- NOTE | 2018-01-19 | NUR ---
VITAL SIGNS WITHIN NORMAL LIMITS. PT STABLE, NO SIGNS OF DISTRESS NOTED AT THIS TIME. BED IN LOWEST POSITION, BED ALARM ON. CALL LIGHT WITHIN REACH, WILL CONTINUE TO MONITOR.
[2018-01-19 04:00] VITALS: BP 140/83
[2018-01-19] MEDS: LORazepam 2 MG/ML VIAL IVP PRN (04:12)
[2018-01-19] MEDS: HYDROcodone/APAP 10/325 MG 1 TAB TAB PO PRN (04:13)
--- NOTE | 2018-01-19 04:13 | NUR ---
PT C/O LEG PAIN 01/08, MEDICATED WITH NORCO PER ORDER, PT ALSO STATED FEELING ANXIOUS AND WANTING ATIVAN. MEDICATED PT, PT TOLERATED WELL.
[2018-01-19 06:10] LABS: BASOPHILS % (AUTO) 0.5 % (0.0-2.0); EOSINOPHILS # (AUTO) 0.3 K/uL (0-0.4); EOSINOPHILS % (AUTO) 4.3 % (0.0-4.0); HEMATOCRIT 37.5 % (36-52); HEMOGLOBIN 12.6 g/dL (12.0-18.0); LYMPHOCYTES # (AUTO) 2.1 K/uL (2.0-11.5); LYMPHOCYTES % (AUTO) 27.5 % (20.5-51.1); MEAN CORPUSCULAR HEMOGLOBIN 30 pg (27-31); MEAN CORPUSCULAR HGB CONC 34 g/dL (33-37); MEAN CORPUSCULAR VOLUME 88.3 fL (80-94); MONOCYTES # (AUTO) 1.3 K/uL (0.8-1.0); MONOCYTES % (AUTO) 16.8 % (1.7-9.3); NEUTROPHILS # (AUTO) 3.9 K/uL (1.8-7.7); NEUTROPHILS % (AUTO) 50.9 % (42.2-75.2); PLATELET COUNT (AUTO) 243 K/uL (140-450); RED BLOOD CELL COUNT(AUTO) 4.25 MIL/uL (4.20-6.10); RED CELL DISTRIBUTION WIDTH 15.6 % (11.6-13.7); WHITE BLOOD COUNT (AUTO) 7.6 K/uL (4.8-10.8)
[2018-01-19 06:31] LABS: ANION GAP 14.3 (8-16); CARBON DIOXIDE 28.8 mmol/L (21-32); CREATININE 0.9 mg/dL (0.7-1.3); POTASSIUM 4.1 mmol/L (3.5-5.1)
[2018-01-19 06:35] LABS: PHOSPHORUS 4.4 mg/dL (2.5-4.9)
[2018-01-19] MEDS: BLOOD GLUCOSE MONITORING 1 DEV DEV FS SCH (06:42)
--- NOTE | 2018-01-19 07:19 | NUR ---
ENDORSED PT TO DAY SHIFT RN FOR CONTINUITY OF CARE. PT IN STABLE CONDITION.
--- NOTE | 2018-01-19 07:20 | NUR ---
RECEIVED PT FROM PM NURSE. PT SLEEPING AT THIS TIME. UPDATED BOARD. ALL SAFTEY MEASURE IN PLACE. WILL CONTINUE TO MONITOR PT.
--- NOTE | 2018-01-19 07:56 | NUR ---
PT UNWILLING TO DO ASSESSMENT AT THIS TIME UNABLE TO ASSESS WILL TRY LATER
[2018-01-19 07:59] VITALS: BP 123/61
--- NOTE | 2018-01-19 07:59 | NUR ---
NO VISIBLE RESP DISTRESS NOTED AT THIS
[2018-01-19] MEDS: MORPHINE TAB ER 15 MG TABER PO SCH (08:15)
[2018-01-19] MEDS: ASPIRIN 325 MG TABEC PO SCH (08:15)
--- NOTE | 2018-01-19 08:15 | NUR ---
ADMINISTERED MEDS AT THIS TIME. PT TOLERATED WELL. PT BEING DISCHARGED TODAY. INFORMED THAT PAPER WORK BEING READY. PT VERBALIZED UNDERSTANDING. PT SITTING ON THE BEDSIDE. NO SIGN OF DISTRESS NOTED AT THIS TIME.WILL CONTINUE TO MONITOR THE PT. FAMILY AT THE BEDSIDE.
[2018-01-19] MEDS: DIGOXIN 0.125 MG TAB PO SCH (08:16)
[2018-01-19] MEDS: ISOSORBIDE DINITRATE 10 MG TAB PO SCH (08:16)
[2018-01-19] MEDS: TOLTERODINE LA 4 MG CAPER PO SCH (08:18)
[2018-01-19] MEDS ORDERED: FURO-572 PO (08:27)
[2018-01-19] MEDS ORDERED: MSCON15 PO (08:27)
[2018-01-19] MEDS ORDERED: FUROSEMIDE 40 MG/4 ML VIAL IVP SCH (09:00)
--- NOTE | 2018-01-19 10:35 | NUR ---
PT LEFT THE HOSPITAL WITH ALL HIS BELONGINGS WITH HIM. HIS FAMILY MEMBER WAS WITH HIM AT THE TIME HE WALKED OUT OF THE HOSPITAL. PT WAS STABLE. WANTED TO TALK TO DR RIVERA. NOTIFIED DR RIVERA, PT TALKED TO HIM. VERBALIZED THE UNDERSTANDING OF DC TEACHING.
== END 2018-01-19 10:35 | disposition home or self-care (01) | DRG 205 ==
LOC: MED 13:46 → MMU 16:16
PROVIDERS: ADMIT General Practice; ATTEND General Practice
DX: M94.0 Chondrocostal junction syndrome [Tietze] (principal); I50.43 Acute on chronic combined systolic (congestive) and diastolic (congestive) heart failure; D68.69 Other thrombophilia; Z68.41 Body mass index [BMI] 40.0-44.9, adult; I42.9 Cardiomyopathy, unspecified; I11.0 Hypertensive heart disease with heart failure; I49.5 Sick sinus syndrome; G89.29 Other chronic pain; M54.30 Sciatica, unspecified side; M54.9 Dorsalgia, unspecified; N40.0 Benign prostatic hyperplasia without lower urinary tract symptoms; E83.42 Hypomagnesemia; I25.10 Atherosclerotic heart disease of native coronary artery without angina pectoris; E66.01 Morbid (severe) obesity due to excess calories; S40.011A Contusion of right shoulder, initial encounter; X58.XXXA Exposure to other specified factors, initial encounter; E11.69 Type 2 diabetes mellitus with other specified complication; F41.9 Anxiety disorder, unspecified; F32.9 Major depressive disorder, single episode, unspecified; M48.061 Spinal stenosis, lumbar region without neurogenic claudication; M19.011 Primary osteoarthritis, right shoulder; G47.33 Obstructive sleep apnea (adult) (pediatric); E78.5 Hyperlipidemia, unspecified; Z95.0 Presence of cardiac pacemaker; I25.2 Old myocardial infarction; Z98.1 Arthrodesis status; Z88.0 Allergy status to penicillin; Z88.8 Allergy status to other drugs, medicaments and biological substances; Z83.3 Family history of diabetes mellitus; Z82.49 Family history of ischemic heart disease and other diseases of the circulatory system; Y93.89 Activity, other specified; Y92.89 Other specified places as the place of occurrence of the external cause; Y99.8 Other external cause status; Z88.1 Allergy status to other antibiotic agents
CPT/HCPCS: 36415; 71045; 73030; 80048; 80053; 80305; 81003; 82550; 82948; 83036; 83690; 83735; 83880; 84100; 84436; 84443; 84479; 84484; 85025; 85610; 85730; 87081; 93005; 93970; 94660; 96374; 96375; 96376; 99285; J1815; J1885; J1940; J2060; J2270; J2765; J3475; Q0092

== ENCOUNTER 2019-03-06 13:36 | Emergency (ER) | payer OTHER ==
[~2019-03-06] VITALS: Ht 167.6 cm; Wt 111.1 kg
[~2019-03-06 13:36] MED LIST changes: -ABI10 PO; -ALPR1TAB2 PO; +ASPI-1790 PO; -ASPI325E46 PO; -COZ50 PO; -FENO145T PO; -FLUO-387 PO; -FURO-570 PO; +FURO-572 PO; -GLIM1TAB6 PO; -ISOS30TA23 PO; -MELO7.5T11 PO; -METF850T PO; -PRED10TA5 PO; -PRIM250T70 PO
[2019-03-06 13:40] VITALS: BP 148/85
[2019-03-06] MEDS ORDERED: NITROGLYCERIN 2% 1 GM PKT TP ONE (14:30)
[2019-03-06] MEDS ORDERED: FUROSEMIDE 40 MG/4 ML VIAL IVP SCH (14:30)
--- NOTE | 2019-03-06 15:02 | NUR ---
PT PRESENTS TO ED WITH C/O SOB SINCE LAST NIGHT. PT ARRIVES ON 2L NC SAT AT 97%, RA AT 94%, NO RESPIRATORY DISTRESS. VSS. CONNECTED TO GRANULATOR OPERATOR.
[2019-03-06 15:52] LABS: BASOPHILS # (AUTO) 0.1 K/uL (0.00-0.22); BASOPHILS % (AUTO) 0.7 % (0.0-2.0); EOSINOPHILS # (AUTO) 0.2 K/uL (0-0.4); EOSINOPHILS % (AUTO) 3.1 % (0.0-4.0); HEMATOCRIT 36.3 % (36-52); HEMOGLOBIN 12.1 g/dL (12.0-18.0); LYMPHOCYTES # (AUTO) 2.3 K/uL (2.0-11.5); LYMPHOCYTES % (AUTO) 29.4 % (20.5-51.1); MEAN CORPUSCULAR HEMOGLOBIN 31 pg (27-31); MEAN CORPUSCULAR HGB CONC 33 g/dL (33-37); MEAN CORPUSCULAR VOLUME 92.1 fL (80-94); MONOCYTES # (AUTO) 0.7 K/uL (0.8-1.0); MONOCYTES % (AUTO) 9.2 % (1.7-9.3); NEUTROPHILS # (AUTO) 4.5 K/uL (1.8-7.7); NEUTROPHILS % (AUTO) 57.6 % (42.2-75.2); PLATELET COUNT (AUTO) 224 K/uL (140-450); RED BLOOD CELL COUNT(AUTO) 3.94 MIL/uL (4.20-6.10); RED CELL DISTRIBUTION WIDTH 15.6 % (11.6-13.7); WHITE BLOOD COUNT (AUTO) 7.8 K/uL (4.8-10.8)
[2019-03-06 16:34] LABS: ALBUMIN 3.1 g/dL (3.4-5.0); ANION GAP 10.1 (8-16); CARBON DIOXIDE 31.7 mmol/L (21-32); CREATININE 0.8 mg/dL (0.7-1.3); TOTAL BILIRUBIN 0.4 mg/dL (0.0-1.0)
[2019-03-06 16:38] LABS: POTASSIUM 2.8 mmol/L (3.5-5.1)
[2019-03-06] MEDS ORDERED: POTASSIUM CHLORIDE 10 MEQ TABER PO ONE (16:45)
[2019-03-06] MEDS ORDERED: MAG SULF 2000 MG/WATER PREMIX 50 ML IV ONE (16:45)
[2019-03-06] MEDS ORDERED: KCL 20 MEQ/WATER INJ PREMIX 100 ML IV ONE (16:45)
--- NOTE | 2019-03-06 18:56 | NUR ---
MEDICATION IS BEING ADMNISTERED ORDERED BY MD; NO ADVERSE SIDE EFFECTS NOTED THUS FAR. WILL CONTINUE TO MONITOR. VSS.
--- NOTE | 2019-03-06 19:18 | NUR ---
REPORT GIVEN TO ARIA REDDY; TRANSFER OF CARE AT THIS TIME.
[2019-03-06 19:27] VITALS: BP 125/68
--- NOTE | 2019-03-06 19:27 | NUR ---
Patient discharged with v/s stable. Written and verbal after care instructions given and explained. Patient alert, oriented and verbalized understanding of instructions. Ambulatory with steady gait, picked up by . All questions addressed prior to discharge. ID band removed. Patient advised to follow up with PMD. Rx of Claritin-d12hr 5mg-120mg ER given. Patient and educated on indication of medication including possible reaction and side effects. Opportunity to ask questions provided and answered.
== END 2019-03-06 19:27 | disposition home or self-care (01) ==
LOC: MED 13:36
DX: E87.6 Hypokalemia (principal); B34.9 Viral infection, unspecified; E11.9 Type 2 diabetes mellitus without complications; I11.0 Hypertensive heart disease with heart failure; I50.9 Heart failure, unspecified; I25.2 Old myocardial infarction; Z95.0 Presence of cardiac pacemaker; Z98.890 Other specified postprocedural states; Z79.82 Long term (current) use of aspirin; Z79.899 Other long term (current) drug therapy; Z88.0 Allergy status to penicillin; Z88.8 Allergy status to other drugs, medicaments and biological substances
CPT/HCPCS: 36415; 71045; 80053; 83880; 84484; 85025; 93005; 96365; 96366; 96368; 96375; 99284; J1940; J3475; J3480; Q0092

== ENCOUNTER 2020-05-20 22:32 | Emergency (ER) | payer OTHER ==
[~2020-05-20] VITALS: Ht 170.2 cm; Wt 103.9 kg
[~2020-05-20 22:32] MED LIST changes: -ACET-787 PO; -ASPI-1790 PO; +ASPI-1886 PO; +EZET10TA14 PO; +HYDR-5191 PO; -ZET10 PO
--- NOTE | 2020-05-20 22:35 | NUR ---
PT TAKEN TO BED 4 VIA W/C ASSIST.
[2020-05-20 22:38] VITALS: BP 165/89
--- NOTE | 2020-05-20 22:44 | NUR ---
60 Y/O M CAME IN WITH COMPLAINTS OF HEADACHE, NECK PAIN AND SHORT TERM LOSS OF MEMORY. REPORTS HAD A FALL ON TUESDAY AND WOKE UP AND DID NOT KNOW WHAT DAY IT WAS. ALERT AND ORIENTED. DROVE HIMSELF INTO E.R BUT REPORTS "I DON'T EVEN REMEMBER DRIVING MYSELF HERE". ABLE TO AMBULATE FROM WHEELCHAIR TO BED. PAIN RADIATES FROM HEAD ALL THE WAY DOWN TO FEET 10/10. MEDICAL HX: DM, HTN, PACEMAKER NKA
--- NOTE | 2020-05-20 22:52 | NUR ---
PATIENT TAKEN TO CT VIA WHEELCHAIR.
--- NOTE | 2020-05-20 23:07 | NUR ---
PT BACK FROM CT, AMBULATES FROM WHEELCHAIR TO BED WITHOUT INCIDENT. CONNECTED TO MONITOR.
--- NOTE | 2020-05-20 23:10 | NUR ---
ERMD AT BEDSIDE ASSESSING PATIENT.
[2020-05-20] MEDS ORDERED: KETOROLAC 60 MG/2 ML VIAL IM ONE (23:15)
--- NOTE | 2020-05-20 23:38 | NUR ---
RESTING COMFORTABLY WITH EYES CLOSED. SNORING RESPIRATIONS NOTED.
[2020-05-20 23:51] VITALS: BP 128/77
--- NOTE | 2020-05-20 23:51 | NUR ---
Patient discharged with v/s stable. Written and verbal after care instructions given and explained. Patient alert, oriented and verbalized understanding of instructions. Ambulatory with steady gait. All questions addressed prior to discharge. ID band removed. Patient advised to follow up with PMD. Rx of motrin and norco given. Patient educated on indication of medication including possible reaction and side effects. Opportunity to ask questions provided and answered.
== END 2020-05-20 23:51 | disposition home or self-care (01) ==
LOC: MED 22:32
DX: S09.90XA Unspecified injury of head, initial encounter (principal); M54.2 Cervicalgia; E11.9 Type 2 diabetes mellitus without complications; F12.90 Cannabis use, unspecified, uncomplicated; I51.9 Heart disease, unspecified; I10 Essential (primary) hypertension; Z91.14 Patient's other noncompliance with medication regimen; Z79.899 Other long term (current) drug therapy; Z95.0 Presence of cardiac pacemaker; Z88.8 Allergy status to other drugs, medicaments and biological substances; W19.XXXA Unspecified fall, initial encounter; Y93.89 Activity, other specified; Y92.89 Other specified places as the place of occurrence of the external cause; Y99.8 Other external cause status
CPT/HCPCS: 70450; 72125; 96372; 99285; J1885

== ENCOUNTER 2021-01-03 14:37 | Inpatient (IN) | payer OTHER, MEDICAID, SELFPAY ==
[~2021-01-03] VITALS: Ht 170.2 cm; Wt 104.3 kg
--- NOTE | 2021-01-03 14:40 | NUR ---
PT W/C ASSISTED TO BED 8.
[2021-01-03 14:44] VITALS: BP 133/74
--- NOTE | 2021-01-03 14:47 | NUR ---
60/M presents to ED with c/o bilateral leg swelling since this morning. Patient states he woke up with leg swelling and generalized body pain. Patient states he feels slight shortness of breath, states he did not take any pain medication but smokes marijuana for pain relief. Bilateral lower extremities swollen, patient states pain worsens with ambulation. Patient denies chest pain, abdominal pain, denies N/V/D. Patient wheel chair assisted to the bed, placed in gown on bedside air sampling and monitoring.
--- NOTE | 2021-01-03 14:53 | NUR ---
Amy lemus in [facility] - 01/03/21 at 1456 by MMTHEM ARTURO Strickland is evaluating the patient at bedside.
--- NOTE | 2021-01-03 14:56 | NUR ---
Dr. Gooden is evaluating the patient at bedside.
[2021-01-03] MEDS ORDERED: KETOROLAC 30 MG/ML VIAL IVP ONE (15:00)
[2021-01-03] MEDS ORDERED: FUROSEMIDE 100 MG/10 ML VIAL IVP ONE (15:00)
[2021-01-03] MEDS ORDERED: GLIM2TAB PO (15:10)
[2021-01-03] MEDS ORDERED: MEX2.5 PO (15:10)
[2021-01-03] MEDS ORDERED: GABA400C PO (15:10)
[2021-01-03] MEDS ORDERED: POTA8TER12 PO (15:10)
[2021-01-03] MEDS ORDERED: FURO-570 PO (15:10)
[2021-01-03] MEDS ORDERED: DOCU-299 PO (15:10)
[2021-01-03] MEDS ORDERED: HYDR200T5 PO (15:10)
[2021-01-03] MEDS ORDERED: ISOS30TE44 PO (15:10)
[2021-01-03] MEDS ORDERED: DIGO-119 PO (15:10)
[2021-01-03] MEDS ORDERED: FOLI1TAB90 PO (15:10)
[2021-01-03] MEDS ORDERED: DULO30EC PO (15:10)
[2021-01-03] MEDS ORDERED: DULO20EC PO (15:15)
[2021-01-03 15:19] LABS: BASOPHILS # (AUTO) 0.1 K/uL (0.00-0.22); BASOPHILS % (AUTO) 1.1 % (0.0-2.0); EOSINOPHILS # (AUTO) 0.2 K/uL (0-0.4); EOSINOPHILS % (AUTO) 4.3 % (0.0-4.0); HEMOGLOBIN 13.6 g/dL (12.0-18.0); LYMPHOCYTES % (AUTO) 35.4 % (20.5-51.1); MEAN CORPUSCULAR HEMOGLOBIN 32 pg (27-31); MEAN CORPUSCULAR HGB CONC 34 g/dL (33-37); MEAN CORPUSCULAR VOLUME 95.1 fL (80-94); MONOCYTES # (AUTO) 0.6 K/uL (0.8-1.0); MONOCYTES % (AUTO) 10.6 % (1.7-9.3); NEUTROPHILS # (AUTO) 2.8 K/uL (1.8-7.7); NEUTROPHILS % (AUTO) 48.6 % (42.2-75.2); PLATELET COUNT (AUTO) 231 K/uL (140-450); RED BLOOD CELL COUNT(AUTO) 4.21 MIL/uL (4.20-6.10); RED CELL DISTRIBUTION WIDTH 13.9 % (11.6-13.7); WHITE BLOOD COUNT (AUTO) 5.8 K/uL (4.8-10.8)
--- NOTE | 2021-01-03 15:19 | NUR ---
agricultural service technician at bedside.
--- NOTE | 2021-01-03 15:22 | NUR ---
Labs and Rupinder swab collected at bedside and handed to labour market economist.
[2021-01-03 15:33] LABS: ANION GAP 8.9 (8-16); CARBON DIOXIDE 30.2 mmol/L (21-32); CREATININE 0.9 mg/dL (0.6-1.3); POTASSIUM 4.1 mmol/L (3.5-5.1)
[2021-01-03 15:38] LABS: ALBUMIN 3.1 g/dL (3.4-5.0); TOTAL BILIRUBIN 0.5 mg/dL (0.0-1.0)
[2021-01-03] MEDS ORDERED: MORPHINE SULFATE 4 MG/ML SYR IVP ONE (16:00)
--- NOTE | 2021-01-03 16:48 | NUR ---
Patient will be admitted to care of Dr. Lewis. Admited to TELE. Will go to room 112B. Belongings list completed. Report to Lan.
--- NOTE | 2021-01-03 17:15 | NUR ---
RECEIVED PATIENT FROM ER NURSE. ADMITTED 60 Y/O MALE, HOMELESS. WITH CC OF BLE SWELLING X2 DAYS, AND SOB. AOX4, ABLE TO MAKE NEEDS KNOWN. NO C/O PAIN AT THIS TIME, RESPIRATIONS EVEN AND UNLABORED, SKIN WARM AND DRY. IV SITE RAC SALINE LOCK. ABDOMEN SOFT, NONTENDER. PLAN OF CARE DISCUSSED, PT VERBALIZED UNDERSTANDING. CALL LIGHT WITHIN REACH. WILL CONTINUE TO MONITOR
[2021-01-03 17:47] VITALS: BP 128/74
--- NOTE | 2021-01-03 18:39 | NUR ---
PT EATING DINNER. NO COMPLAINTS AT THIS TIME
--- NOTE | 2021-01-03 19:34 | NUR ---
PLAN OF CARE DISCUSSED WITH HATTIE DANGELO LVN.
[2021-01-03 20:00] VITALS: BP 102/60
[2021-01-03] MEDS ORDERED: SODIUM PHOS / POTASSIUM PHOS 1 PKT PDR PO PRN (21:30)
[2021-01-03] MEDS ORDERED: HYDROcodone/APAP 5/325 MG 1 TAB TAB PO PRN (21:30)
[2021-01-03] MEDS ORDERED: ONDANSETRON 4 MG/2 ML VIAL IM/IVP PRN (21:30)
[2021-01-03] MEDS ORDERED: ACETAMINOPHEN 325 MG TAB PO PRN (21:30)
[2021-01-03] MEDS: NACL 0.9% 1,000 ML IV SCH (21:30)
[2021-01-03] MEDS ORDERED: POTASSIUM CHLORIDE 40 MEQ, LIDOCAINE MPF 1% 25 MG in NACL 0.9% 250 ML IV PRN (21:30)
[2021-01-03] MEDS ORDERED: ALBUTEROL SULFATE/IPRATROPIU 3 ML SOL IH PRN (21:30)
[2021-01-03] MEDS ORDERED: MAG SULF 2000 MG/WATER PREMIX 50 ML IV PRN (21:30)
[2021-01-03] MEDS ORDERED: DOCUSATE SODIUM 100 MG GELCAP PO PRN (21:30)
[2021-01-03 22:18] LABS: MAGNESIUM 1.8 mg/dL (1.8-2.4); PHOSPHORUS 3.7 mg/dL (2.5-4.9)
[2021-01-04] VITALS: BP 104/71
[2021-01-04] MEDS: MORPHINE SULFATE 2 MG/ML SYR IVP PRN ×4 (00:04→17:40)
--- NOTE | 2021-01-04 00:04 | NUR ---
PT STATES HE HAS PAIN IN HIS LOWER EXTREMITIES AT A SCALE OF 10/10. PT STATES THE PAIN ACHING IN CHARACTERISTIC. PT WAS GIVEN MORPHINE FOR PAIN IVP ORDERED. WILL MONITOR PAIN.
[2021-01-04] MEDS ORDERED: MELATONIN 3 MG TAB PO PRN (00:35)
--- NOTE | 2021-01-04 01:05 | NUR ---
SITTING ON BED, REQUESTED TO LAY DOWN IN BED TO PREVEN FALLING. STATED "I AM USED TO SLEEPING SITTING DOWN IN MY CAR. " PAIN DECREASED 08/10.
[2021-01-04] MEDS ORDERED: ZOLPIDEM 5 MG TAB PO ONE (02:40)
--- NOTE | 2021-01-04 02:56 | NUR ---
SITTING ON BED, UNABLE TO SLEEP, MEDICATED WITH AMBIEN 5 MG. PO.
[2021-01-04 04:00] VITALS: BP 135/79
--- NOTE | 2021-01-04 04:00 | NUR ---
SLEEPING SITTING ON BED. NO RESPIRATORY DISTRESS NOTED.
[2021-01-04 05:51] LABS: BASOPHILS # (AUTO) 0.1 K/uL (0.00-0.22); EOSINOPHILS # (AUTO) 0.2 K/uL (0-0.4); EOSINOPHILS % (AUTO) 3.9 % (0.0-4.0); HEMATOCRIT 37.8 % (36-52); HEMOGLOBIN 12.6 g/dL (12.0-18.0); LYMPHOCYTES # (AUTO) 2.4 K/uL (2.0-11.5); LYMPHOCYTES % (AUTO) 41.8 % (20.5-51.1); MEAN CORPUSCULAR HEMOGLOBIN 33 pg (27-31); MEAN CORPUSCULAR HGB CONC 33 g/dL (33-37); MEAN CORPUSCULAR VOLUME 98.1 fL (80-94); MONOCYTES # (AUTO) 0.8 K/uL (0.8-1.0); MONOCYTES % (AUTO) 14.4 % (1.7-9.3); NEUTROPHILS # (AUTO) 2.2 K/uL (1.8-7.7); NEUTROPHILS % (AUTO) 38.9 % (42.2-75.2); PLATELET COUNT (AUTO) 215 K/uL (140-450); RED BLOOD CELL COUNT(AUTO) 3.86 MIL/uL (4.20-6.10); RED CELL DISTRIBUTION WIDTH 13.7 % (11.6-13.7); WHITE BLOOD COUNT (AUTO) 5.7 K/uL (4.8-10.8)
--- NOTE | 2021-01-04 06:00 | NUR ---
NO RESPIRATORY DISTRESS NOTED DURING THE NIGHT. CONDITION REMAIN STABLE.
[2021-01-04 06:33] LABS: CARBON DIOXIDE 30.8 mmol/L (21-32); CREATININE 1.1 mg/dL (0.6-1.3)
--- NOTE | 2021-01-04 07:10 | NUR ---
ENDORSED TO AM SHIFT NURSE FOR CONTINUITY OF CARE.
[2021-01-04 07:13] LABS: ANION GAP 9.3 (8-16); POTASSIUM 4.1 mmol/L (3.5-5.1)
--- NOTE | 2021-01-04 07:15 | NUR ---
RECEIVED BEDSIDE REPORT FROM NIGHTSHIFT NURSE. PT RESTING IN BED. ABLE TO MAKE NEEDS KNOWN. RESPIRATIONS EVEN AND UNLABORED WITH NO SOB OR RESPIRATORY DISTRESS. SKIN WARM AND DRY TO TOUCH. SAFETY MEASURES IN PLACE. WILL CONTINUE TO MONITOR
[2021-01-04 08:00] VITALS: BP 127/64
--- NOTE | 2021-01-04 08:02 | NUR ---
ENDORSED TO YOGI FOR CONTINUING PLAN OF CARE
--- NOTE | 2021-01-04 08:05 | NUR ---
RECEIVED PT AAOX4. NO SOB NOTED. NO C/O PAIN AT THIS TIME. ASSUMED CARE FROM PRITI.
--- NOTE | 2021-01-04 08:07 | NUR ---
RECEIVED PT ON ROOM AIR. PT RESTING COMFORTABLY. VITALS STABLE. SAT 98%, HR 60, RR 20, BRS DIMINISHED. WOB IS WNL. NO SIGNS OF RESPIRATORY DISTRESS UPON LEAVING PT ROOM. WILL CONTINUE TO MONITOR.
[2021-01-04] MEDS: GABAPENTIN 100 MG CAP PO SCH ×3 (08:58→17:39)
[2021-01-04] MEDS: DOCUSATE SODIUM 100 MG GELCAP PO SCH ×2 (08:59→21:03)
[2021-01-04] MEDS: FOLIC ACID 1 MG TAB PO SCH (08:59)
[2021-01-04] MEDS: HYDROXYCHLOROQUINE 200 MG TAB PO SCH (08:59)
[2021-01-04] MEDS: DULoxetine 30 MG CAPDR PO SCH (08:59)
[2021-01-04] MEDS ORDERED: ISOSORBIDE MONONITRATE 30 MG TABER PO SCH (09:00)
[2021-01-04] MEDS ORDERED: GLIMEPIRIDE 2 MG TAB PO SCH (09:00)
[2021-01-04] MEDS ORDERED: FUROSEMIDE 40 MG/4 ML VIAL IVP SCH (09:00)
[2021-01-04] MEDS ORDERED: DIGOXIN 0.25 MG TAB PO SCH (09:00)
--- NOTE | 2021-01-04 09:00 | NUR ---
FOUND PT'S HOME MEDS AT THE BEDSIDE, PT REFUSED TO PUT HOME MEDS TO THE PHARMACY FOR SAFEKEEPING.RISKS AND CONSEQUENCES EXPLAINED TO PT, VERBALIZED UNDERSTANDING. PT PROMISED NOT TO SELF ADMINISTER HIS HOME MEDS AND TO ONLY TAKE MEDS THAT'S GIVEN BY HIS NURSE.
[2021-01-04] MEDS ORDERED: ASPIRIN 325 MG TABEC PO SCH ×2 (10:15→11:55)
[2021-01-04] MEDS ORDERED: ASPIRIN 81 MG TAB.CHEW PO SCH (11:39)
--- NOTE | 2021-01-04 11:39 | NUR ---
PHARMACY CALLED IN REGARDS TO INCORRECT DOSE ORDER FOR SCHEDULED ASPIRIN. WILL ADMINISTER SOON CHANGES ARE MADE.
[2021-01-04] MEDS ORDERED: ECOTRIN 81 MG TABEC PO SCH (11:55)
[2021-01-04 12:00] VITALS: BP 123/70
[2021-01-04] MEDS ORDERED: INSULIN LISPRO SLIDING SCALE 100 UNITS/ML VIAL SUBQ PRN (12:55)
[2021-01-04] MEDS ORDERED: DEXTROSE 50% 50 ML SYR IVP PRN (12:55)
[2021-01-04] MEDS: NACL 0.9% 1,000 ML IV SCH (13:49)
[2021-01-04 16:00] VITALS: BP 103/49
[2021-01-04] MEDS: BLOOD GLUCOSE MONITORING 1 DEV DEV FS SCH ×2 (16:30→21:12)
[2021-01-04] MEDS: FUROSEMIDE 40 MG/4 ML VIAL IVP SCH (17:39)
--- NOTE | 2021-01-04 17:40 | NUR ---
ADMINISTERED SCHEDULED MEDS PER MD ORDER. MORPHINE ADMINISTERED FOR PAIN 9/10 ON BLE, SEE PAIN ASSESSMENT NOTES. BLOOD GLUCOSE CHECKED, 95, NO INSULIN COVERAGE NEEDED. MED EDUCATION PROVIDED, PATIENT VERBALIZES UNDERSTANDING.
--- NOTE | 2021-01-04 19:20 | NUR ---
ENDORSED TO SPECIAL AGENT FBI NURSE FOR CONTINUITY OF CARE. PATIENT STABLE AT THIS TIME.
--- NOTE | 2021-01-04 19:21 | NUR ---
RECD. SITTING ON BED, AWAKE, A/OX4. RESPIRATION EVEN AND UNLABORED. IV OF NS AT 60 ML/HR INFUSING, RIGHT AC G20. AMBULATORY TO THE BR. BILATERAL LOWER EXTREMITIES WITH +1 PITTING EDEMA, ELEVATED ON PILLOWS. MEDICATIONS AND CARE FOR THE SHIFT DISCUSSED. VERBALIZED UNDERSTANDING. DENIES PAIN 0/10.
--- NOTE | 2021-01-04 19:49 | NUR ---
PLAN OF CARE DISCUSSED WITH HATTIE DANGELO LVN.
[2021-01-04 20:00] VITALS: BP 115/49
[2021-01-04] MEDS: carvediloL 3.125 MG TAB PO SCH (21:03)
--- NOTE | 2021-01-04 21:05 | NUR ---
SCHEDULED MEDICATIONS GIVEN. BS CHECKED - 115, NO COVERAGE. TEACHINGS ON PROPER DIET AND BLOOD SUGAR CONTROL GIVEN. VERBALIZED UNDERSTANDING.
[2021-01-05] VITALS: BP 112/45
[2021-01-05] MEDS: MORPHINE SULFATE 2 MG/ML SYR IVP PRN ×4 (00:47→21:08)
--- NOTE | 2021-01-05 00:47 | NUR ---
PT STATES HE HAS PAIN IN HIS LOWER EXTREMITIES AT A SCALE OF 10/10. PT WAS GIVEN MORPHINE FOR PAIN IVP. BP WAS 112/45 PRIOR TO ADMINISTRATION OF MEDICATION. WILL MONITOR PAIN.
--- NOTE | 2021-01-05 00:50 | NUR ---
PT IV SITE CAME OUT, NEW IV SITE 22G LEFT WRIST PLACED. PT REQUESTED SLEEPING MEDS AND WAS GIVEN ORDERED PRN MELATONIN. ALL OTHER REQUESTS ATTENDED BY STAFF AND ALL UNIVERSAL FALLS PRECAUTIONS IN PLACE. Addendum: 01/06/21 at 0306 by Verna Ferguson RN NOT 01/05 BUT 01/06
--- NOTE | 2021-01-05 02:00 | NUR ---
SITTING ON EDGE OF THE BED SLEEPING. REMINDED REGARDING SAFETY. STATED HE IS USED TO SLEEPING SITTING BECAUSE HE LIVES IN HIS CAR. PAIN DECREASED 2/.
--- NOTE | 2021-01-05 03:30 | NUR ---
PATIENT SLEEPING WHILE SITTING ON THE EDGE OF BED, WAKEN UP. HR GOES DOWN TO 34 - 39 BUT GOES UP AGAIN, WITH PACEMAKER. AFTER AWAKEN, HEART GOES BACK TO 60'S.
[2021-01-05 04:00] VITALS: BP 102/64
--- NOTE | 2021-01-05 04:14 | NUR ---
HR - 64, PACED RHYTHM ON TELE MONITOR. SITTING ON THE BED, ASLEEP.
[2021-01-05 05:47] LABS: CREATININE 0.8 mg/dL (0.6-1.3); POTASSIUM 4.1 mmol/L (3.5-5.1)
[2021-01-05] MEDS: NACL 0.9% 1,000 ML IV SCH ×2 (05:56→23:30)
[2021-01-05 05:58] LABS: BASOPHILS % (AUTO) 0.5 % (0.0-2.0); EOSINOPHILS # (AUTO) 0.2 K/uL (0-0.4); EOSINOPHILS % (AUTO) 3.8 % (0.0-4.0); HEMATOCRIT 42.2 % (36-52); HEMOGLOBIN 14.1 g/dL (12.0-18.0); LYMPHOCYTES # (AUTO) 1.8 K/uL (2.0-11.5); LYMPHOCYTES % (AUTO) 31.9 % (20.5-51.1); MEAN CORPUSCULAR HEMOGLOBIN 33 pg (27-31); MEAN CORPUSCULAR HGB CONC 34 g/dL (33-37); MEAN CORPUSCULAR VOLUME 97.4 fL (80-94); MONOCYTES # (AUTO) 0.8 K/uL (0.8-1.0); MONOCYTES % (AUTO) 14.6 % (1.7-9.3); NEUTROPHILS # (AUTO) 2.7 K/uL (1.8-7.7); NEUTROPHILS % (AUTO) 49.2 % (42.2-75.2); PLATELET COUNT (AUTO) 208 K/uL (140-450); RED BLOOD CELL COUNT(AUTO) 4.33 MIL/uL (4.20-6.10); RED CELL DISTRIBUTION WIDTH 13.9 % (11.6-13.7); WHITE BLOOD COUNT (AUTO) 5.5 K/uL (4.8-10.8)
--- NOTE | 2021-01-05 06:15 | NUR ---
CHECKED BLOOD SUGAR - 66, TW0 ORANGE JUICE GIVEN, ASYMPTOMATIC. WILL RECHECK BLOOD SUGAR LATER.
--- NOTE | 2021-01-05 06:15 | NUR ---
BS CHECKED - 66, TWO TETRA PACK OF ORANGE JUICE GIVEN. PATIENT IS ASYMPTOMATIC. WILL CHECK BLOOD SUGAR AGAIN.
[2021-01-05 06:47] LABS: ANION GAP 17.2 (8-16); CARBON DIOXIDE 25.9 mmol/L (21-32)
--- NOTE | 2021-01-05 07:15 | NUR ---
BS CHECK 93. PATIENT STILL SLEEPING IN BED, NO DISTRESS NOTED. ENDORSED TO AM SHIFT NURSE FOR CONTINUITY OF CARE,
--- NOTE | 2021-01-05 07:35 | NUR ---
ENDORSED TO AM SHIFT NURSE FOR CONTINUITY OF CARE.
--- NOTE | 2021-01-05 07:36 | NUR ---
PT RECEIVED FROM FINANCIAL SERVICES MANAGER NURSE
[2021-01-05] MEDS: BLOOD GLUCOSE MONITORING 1 DEV DEV FS SCH ×4 (07:52→20:46)
[2021-01-05 08:00] VITALS: BP 123/61
--- NOTE | 2021-01-05 08:31 | NUR ---
PT COMPLAINS OF 10/10 PAIN . MEDICATIONS GIVEN PER MD ORDER. PT EDUCATED VERBALIZED UNDERSTANDING. NO S/S OF DISTRESS AT THIS TIME ALL SAFETY MEASURES ARE IN PLACE. CALL LIGHT IS WITHIN REACH
[2021-01-05] MEDS: DULoxetine 30 MG CAPDR PO SCH (08:34)
[2021-01-05] MEDS: GABAPENTIN 100 MG CAP PO SCH ×3 (08:35→17:10)
[2021-01-05] MEDS: DOCUSATE SODIUM 100 MG GELCAP PO SCH ×2 (08:36→21:12)
[2021-01-05] MEDS: FOLIC ACID 1 MG TAB PO SCH (08:36)
[2021-01-05] MEDS: ECOTRIN 81 MG TABEC PO SCH (08:37)
[2021-01-05] MEDS: lisinopriL 5 MG TAB PO SCH (08:37)
[2021-01-05] MEDS: HYDROXYCHLOROQUINE 200 MG TAB PO SCH (08:37)
[2021-01-05] MEDS: carvediloL 3.125 MG TAB PO SCH ×2 (08:41→21:00)
--- NOTE | 2021-01-05 08:46 | NUR ---
PATIENT HAS BEEN SCREENED AND CATEGORIZED MODERATE NUTRITION RISK. PATIENT WILL BE SEEN WITHIN 3-5 DAYS OF ADMISSION. 01/06/21 01/08/[address]
--- NOTE | 2021-01-05 08:49 | NUR ---
MEDICATIONS GIVEN PER MD ORDER. PT EDUCATED AND VERBALIZED UNDERSTANDING. PT TOLERATED WELL.
[2021-01-05] MEDS: FUROSEMIDE 40 MG/4 ML VIAL IVP SCH ×2 (08:53→17:08)
--- NOTE | 2021-01-05 09:29 | NUR ---
PT AT BEDSIDE
--- NOTE | 2021-01-05 11:25 | NUR ---
PTS BG ASSESSED - 103
--- NOTE | 2021-01-05 11:58 | NUR ---
VITALS TAKEN BY RN . PT RESTING IN BED EYES CLOSED EASY TO AROUSE.
[2021-01-05 12:00] VITALS: BP 111/55
--- NOTE | 2021-01-05 13:00 | NUR ---
PT SITTING IN CHAIR. MEDICATIONS GIVEN PER MD ORDER. PT EDUCATED VERBALIZED UNDERSTANDING. NO S/S OF DISTRESS AT THIS TIME ALL SAFETY MEASURES ARE IN PLACE. CALL LIGHT IS WITHIN REACH
--- NOTE | 2021-01-05 14:14 | NUR ---
PT IN BED 2 CUPS OF COFFEE PROVIDED PER REQUEST.
--- NOTE | 2021-01-05 14:54 | NUR ---
PTS BED CHANGED, NEW GOWN PROVIDED . PT AMBULATED TO RESTROOM SAT IN CHAIR. [place] PROVIDED FOR SPONGE BATH. PT PERFORMED INDEPENDENTLY WITH STAND BY ASSISTANCE.
--- NOTE | 2021-01-05 15:40 | NUR ---
VITALS OBTAINED BY RN. PT PROVIDED SNACKS
[2021-01-05 16:00] VITALS: BP 101/68
--- NOTE | 2021-01-05 16:34 | NUR ---
BG ASSESSED 83
--- NOTE | 2021-01-05 18:10 | NUR ---
PT IS SITTING IN BED EATING DINNER. PTS LEADS WERE REPLACED. TELE MONITOR KEEPS SLIPPING OFF HIM
--- NOTE | 2021-01-05 19:30 | NUR ---
RECEIVED REPORT FROM CARLOZ KNAPP DAYSHIFT NURSE AT BEDSIDE FOR CONTINUITY OF CARE, PT IN STABLE CONDITION.
--- NOTE | 2021-01-05 19:30 | NUR ---
RECEIVED REPORT FROM CARLOZ KNAPP DAYSHIFT NURSE AT BEDSIDE FOR CONTINUITY OF CARE. PT SITTING UP IN BED ON ROOM AIR. PT C/O OF PAIN IN LEGS WILL RETURN TO MEDICATE PT.
--- NOTE | 2021-01-05 19:30 | NUR ---
PT ENDORSED TO RN FOR CONTINUITY OF CARE
[2021-01-05 20:00] VITALS: BP 107/70
--- NOTE | 2021-01-05 20:00 | NUR ---
PT AMBULATED TO THE SIDE AROUND THE CORNER TO USE HIS PHONE. LOWER EXTREMITIES NOTED WITH NON PITTING EDEMA. V/S FOLLOWS: T 97.9 P 66 R 18 B/P 107/70 02 96% PT FINGERSTICK IS 95 NO HUMALOG COVERAGE NEEDED.
--- NOTE | 2021-01-05 21:15 | NUR ---
PT GIVEN ORDERED COLACE MEDICATION PURPOSE EXPLAINED, PT VERBALIZED UNDERSTANDING. COREG HELD DUE TO LOW B/P. PT C/O 7/10 GENERALIZED PAIN AND WAS GIVEN IVP MORPHINE. PT WALKED BACK TO ROOM WITH STEADY GAIT AND SAT NEXT TO BED. IV FLUIDS RESTARTED VIA RIGHT 20G IV SITE. ALL REQUESTED NEEDS ATTENDED BY STAFF.
[2021-01-06] VITALS: BP 115/62
--- NOTE | 2021-01-06 00:50 | NUR ---
PT IV SITE CAME OUT, NEW IV SITE 22G LEFT WRIST PLACED. PT REQUESTED SLEEPING MEDS AND WAS GIVEN ORDERED PRN MELATONIN. ALL OTHER REQUESTS ATTENDED BY STAFF AND ALL UNIVERSAL FALLS PRECAUTIONS IN PLACE.
[2021-01-06 04:00] VITALS: BP 102/40
[2021-01-06] MEDS: MORPHINE SULFATE 2 MG/ML SYR IVP PRN (04:24)
[2021-01-06 07:01] LABS: ANION GAP 11.2 (8-16); CARBON DIOXIDE 30.7 mmol/L (21-32); CREATININE 0.8 mg/dL (0.6-1.3); POTASSIUM 3.9 mmol/L (3.5-5.1)
[2021-01-06 07:07] LABS: BASOPHILS % (AUTO) 0.5 % (0.0-2.0); EOSINOPHILS # (AUTO) 0.2 K/uL (0-0.4); EOSINOPHILS % (AUTO) 3.5 % (0.0-4.0); HEMATOCRIT 42.6 % (36-52); HEMOGLOBIN 14.5 g/dL (12.0-18.0); LYMPHOCYTES % (AUTO) 33.1 % (20.5-51.1); MEAN CORPUSCULAR HEMOGLOBIN 33 pg (27-31); MEAN CORPUSCULAR HGB CONC 34 g/dL (33-37); MEAN CORPUSCULAR VOLUME 95.1 fL (80-94); MONOCYTES # (AUTO) 0.9 K/uL (0.8-1.0); MONOCYTES % (AUTO) 14.4 % (1.7-9.3); NEUTROPHILS # (AUTO) 2.9 K/uL (1.8-7.7); NEUTROPHILS % (AUTO) 48.5 % (42.2-75.2); PLATELET COUNT (AUTO) 204 K/uL (140-450); RED BLOOD CELL COUNT(AUTO) 4.47 MIL/uL (4.20-6.10); RED CELL DISTRIBUTION WIDTH 13.5 % (11.6-13.7); WHITE BLOOD COUNT (AUTO) 5.9 K/uL (4.8-10.8)
[2021-01-06] MEDS ORDERED: MORPHINE SULFATE 2 MG/ML SYR IVP PRN (07:31)
[2021-01-06] MEDS: BLOOD GLUCOSE MONITORING 1 DEV DEV FS SCH ×3 (07:43→16:30)
[2021-01-06 08:00] VITALS: BP 122/73
--- NOTE | 2021-01-06 08:00 | NUR ---
RECEIVED REPORT FROM PIPE LINE REPAIRER FOR CONTINUITY OF CARE. PATIENT ALERT AWAKE ORIENTED X4, NOT IN ANY DISTRESS NOTED. DENIES CHEST PAIN. HEPLOCK ON THE LEFT HAND SEEMS INFILTRATED. ON MONITOR SHOWS PACED.CALL LIGHT WITHIN REACH. NEEDS ATTENDED. WILL CONTINUE TO MONITOR.
[2021-01-06] MEDS: GABAPENTIN 100 MG CAP PO SCH ×3 (08:32→17:58)
[2021-01-06] MEDS: HYDROXYCHLOROQUINE 200 MG TAB PO SCH (08:33)
[2021-01-06] MEDS: FOLIC ACID 1 MG TAB PO SCH (08:33)
[2021-01-06] MEDS: DOCUSATE SODIUM 100 MG GELCAP PO SCH (08:33)
[2021-01-06] MEDS: lisinopriL 5 MG TAB PO SCH (08:34)
[2021-01-06] MEDS: DULoxetine 30 MG CAPDR PO SCH (08:35)
[2021-01-06] MEDS: ECOTRIN 81 MG TABEC PO SCH (08:36)
[2021-01-06] MEDS: FUROSEMIDE 40 MG/4 ML VIAL IVP SCH (08:36)
--- NOTE | 2021-01-06 09:00 | NUR ---
DUE MEDICATIONS GIVEN, SEEN BY DR. GARCIA AND CLEARED HIM FROM CARDIAC STAND POINT. IV INFILTRATED WHILE GIVING LASIX, DR GARCIA SAID HE WILL CHANGE TO PO. WILL CONTINUE TO MONITOR.
[2021-01-06] MEDS: carvediloL 3.125 MG TAB PO SCH (09:11)
[2021-01-06] MEDS: FUROSEMIDE 40 MG TAB PO SCH ×2 (10:21→17:58)
--- NOTE | 2021-01-06 11:05 | NUR ---
DC PLANNIN YRS OLD MALE PATIENT WAS ADMITTED FROM HOME WITH A DX OF UNCONTROLLED DC, ELEVATED TROPONIN. PT HAS ELEVATED BUN/CREAT AND SODIUM. CONSULTED WITH CARDIO AND NEPHRO. RECEIVED A CALL FROM [employer]FF[employer] SPOKE WITH SHENG PAYNE PT'S CLINICAL. HE PROVIDE THE AUTH # [id number] FOR HOSPITAL STAY. CM TO FOLLOW Addendum: 01/06/21 at 1143 by Selena Perez CM DC ATTRACTION WORKER: CONTACTED ZACH FELDMAN/DAX. LEFT A VOICEMAIL FOR CM ROSALINDA [phone]. Addendum: 01/06/21 at 0053 by Demetrice Naranjo RN DC PLANNING: PT STATED HE IS HOMELESS, LIVES IN HIS CAR. PT STATED HE MAKES 2000$, GETS [employer] AND HAS A CAR AND MOTORBIKE. RECOMMENDED TO HELP HIM TO GET ROOM AND BOARD. CONTACTED JENA SPOKE WITH THE PATIENT. HOWEVER PATIENT WANTED TO PAY ONLY 500-600$ UNABLE TO GET WITH THIS TRIPATHI AND PATIENT AGREED TO PAY 700 AND WANTED A PARKING SPACE FOR HIS CAR AND MOTORBIKE. MARILYNN CHECK SEVERAL PLACES AND NO ONE WANTED TO TAKE RESPONSIBILITY FOR HIS MOTORBIKE. PT STATED CAN NOT PAY MORE, OR REFUSED TO GO TO HOMELESS [facility]. AND PREFERRED TO STAY IN HIS CAR HAS PROPER CLOTHES . RN WILL PROVIDE FOOD AND SNACK. CM TO FOLLOW Addendum: 01/06/21 at 1745 by Demetrice Naranjo RN DC PLANNING: RECEIVED A CALL FROM MARILYNN STATED HAS FOUND [place] ON [address] WITH A PARKING, PROVIDE HIS NUMBER TO CONTACT HIM.
[2021-01-06 12:00] VITALS: BP 99/60
--- NOTE | 2021-01-06 14:00 | NUR ---
PATIENT WAS SEEN BY DR. RINCON AND DISCUSSED PLAN TO DC TODAY, PATIENT SAID IF HE CAN STAY, HE HAS NO PLACE TO GO. CALLED MIRANDA NELSON AND MADE AWARE. WILL CONTINUE TO FOLLOW UP.
[2021-01-06] MEDS ORDERED: LISI-648 PO (14:09)
[2021-01-06] MEDS ORDERED: CARV3.122 PO (14:09)
[2021-01-06] MEDS ORDERED: FURO40TA9 PO (14:09)
[2021-01-06] MEDS ORDERED: ASPI-1856 PO (14:09)
[2021-01-06 16:00] VITALS: BP 102/48
[2021-01-06] MEDS: NACL 0.9% 1,000 ML IV SCH (16:10)
--- NOTE | 2021-01-06 18:54 | NUR ---
PATIENT DC TODAY, REMOVED IV AND HEART MONITOR. DC INSTRUCTION AND PRESCRIPTION GIVEN AND VERBALIZED UNDERSTANDING. IN STABLE CONDITION.
--- NOTE | 2021-01-06 19:32 | NUR ---
PATIENT STILL HERE, HE SAID HE WILL CALL WHEN HIS READY. ENDORSE TO ARIA SANDOVAL .
--- NOTE | 2021-01-06 19:35 | NUR ---
RECEIVED PT SITTING ON BED USING HIS CELLPHONE, DC PAPERS ALREADY SIGNED AND IV SITE DISCONTINUED, PT WEARING HIS OWN CLOTHES, NO DISTRESS NOTED, WILL LET ME KNOW WHEN HIS READY TO LEAVE, CALL LIGHT WITHIN REACH.
--- NOTE | 2021-01-06 20:00 | NUR ---
RECEIVED REPORT PATIENT WAS STANDING BY THE SINK, AMBULATORY, PATIENT WAS OFFICIALLY DISCHARGED, JUST WAITING FOR HIM TO LEAVE, PATIENT IS HOMELESS.
--- NOTE | 2021-01-06 20:17 | NUR ---
BEDSIDE REPORT GIVEN TO ARIA SALMON FOR CONTINUITY OF CARE.
--- NOTE | 2021-01-06 21:00 | NUR ---
PATIENT WAS ALERT AND COHERENT NO S/S OF DISTRESS, ALL BELONGINGS ACCOUNTED AND GIVEN TO THE PATIENT, SAFELY WHEELED OUT TO THE HOSPITAL
--- NOTE | 2021-01-06 21:00 | NUR ---
PT WHEELED OUT VIA WHEELCHAIR AND HIS LARGE COOLER TO OUTSIDE LOBBY, PT WALK TO ER PARKING LOT AND DROVE HIS CAR TO FRONT OF THE HOSPITAL, DISCHARGE VIA PRIVATE VEHICLE IN STABLE CONDITION.
[2021-01-07] MEDS ORDERED: METHOTREXATE 2.5 MG TAB PO SCH (09:00)
== END 2021-01-06 21:00 | disposition home or self-care (01) | DRG 292 ==
LOC: MED 14:37 → MTU 16:21
PROVIDERS: ADMIT Hospitalist; ATTEND Hospitalist
DX: I11.0 Hypertensive heart disease with heart failure (principal); E44.1 Mild protein-calorie malnutrition; I50.23 Acute on chronic systolic (congestive) heart failure; I25.5 Ischemic cardiomyopathy; Z20.822 Contact with and (suspected) exposure to COVID-19; I25.10 Atherosclerotic heart disease of native coronary artery without angina pectoris; E11.9 Type 2 diabetes mellitus without complications; M06.9 Rheumatoid arthritis, unspecified; Z88.0 Allergy status to penicillin; Z88.8 Allergy status to other drugs, medicaments and biological substances; I25.2 Old myocardial infarction; Z95.0 Presence of cardiac pacemaker; Z79.899 Other long term (current) drug therapy; Z83.3 Family history of diabetes mellitus; Z82.49 Family history of ischemic heart disease and other diseases of the circulatory system; Z68.36 Body mass index [BMI] 36.0-36.9, adult; Z79.84 Long term (current) use of oral hypoglycemic drugs
CPT/HCPCS: 36415; 71045; 80048; 80053; 82948; 83036; 83735; 83880; 84100; 84484; 85025; 87081; 93005; 93970; 94640; 96374; 96375; 97530; 99285; J1885; J1940; J2270; J8610

== ENCOUNTER 2021-01-07 22:29 | Inpatient (IN) | payer OTHER, MEDICAID, SELFPAY ==
[~2021-01-07] VITALS: Ht 172.7 cm; Wt 103.9 kg
[~2021-01-07 22:29] MED LIST changes: +ASPI-1856 PO; -ASPI-1886 PO; +CARV3.122 PO; -DIGO0.122 PO; +DOCU-299 PO; -DOXA2TAB32 PO; +DULO20EC PO; -EZET10TA14 PO; -FLUO5CRE TP; +FOLI1TAB90 PO; +FURO-570 PO; -FURO-572 PO; +FURO40TA9 PO; +GABA400C PO; +GLIM2TAB PO; -HYDR-5191 PO; +HYDR200T5 PO; -ICOS1SGL PO; +LISI-648 PO; +MEX2.5 PO; -MSCON15 PO; +POTA8TER12 PO; -TOLT1TAB12 PO
[2021-01-07 22:59] VITALS: BP 128/56
[2021-01-08] MEDS ORDERED: ONDANSETRON 4 MG/2 ML VIAL IVP ONE (00:10)
[2021-01-08] MEDS ORDERED: methylPREDNISolone SS 125 MG/2 ML VIAL IVP ONE (00:10)
[2021-01-08] MEDS ORDERED: MORPHINE SULFATE 2 MG/ML SYR IVP ONE (00:10)
[2021-01-08 00:26] LABS: BASOPHILS % (AUTO) 0.5 % (0.0-2.0); EOSINOPHILS # (AUTO) 0.2 K/uL (0-0.4); HEMATOCRIT 39.9 % (36-52); HEMOGLOBIN 13.4 g/dL (12.0-18.0); LYMPHOCYTES # (AUTO) 2.2 K/uL (2.0-11.5); LYMPHOCYTES % (AUTO) 35.3 % (20.5-51.1); MEAN CORPUSCULAR HEMOGLOBIN 32 pg (27-31); MEAN CORPUSCULAR HGB CONC 34 g/dL (33-37); MEAN CORPUSCULAR VOLUME 96.3 fL (80-94); MONOCYTES # (AUTO) 1.1 K/uL (0.8-1.0); MONOCYTES % (AUTO) 16.8 % (1.7-9.3); NEUTROPHILS # (AUTO) 2.8 K/uL (1.8-7.7); NEUTROPHILS % (AUTO) 44.4 % (42.2-75.2); PLATELET COUNT (AUTO) 199 K/uL (140-450); RED BLOOD CELL COUNT(AUTO) 4.14 MIL/uL (4.20-6.10); RED CELL DISTRIBUTION WIDTH 13.5 % (11.6-13.7); WHITE BLOOD COUNT (AUTO) 6.4 K/uL (4.8-10.8)
[2021-01-08 00:44] LABS: ALBUMIN 3.1 g/dL (3.4-5.0); ANION GAP 10.4 (8-16); CARBON DIOXIDE 29.6 mmol/L (21-32); CREATININE 1.1 mg/dL (0.6-1.3); TOTAL BILIRUBIN 0.4 mg/dL (0.0-1.0)
[2021-01-08 04:55] VITALS: BP 131/77
[2021-01-08] MEDS: NACL 0.9% 1,000 ML IV SCH ×3 (05:24→16:50)
[2021-01-08] MEDS ORDERED: MORPHINE SULFATE 2 MG/ML SYR IVP SCH (06:25)
[2021-01-08 08:00] VITALS: BP 140/80
[2021-01-08] MEDS ORDERED: POTASSIUM CHLORIDE 10 MEQ TABER PO PRN (08:35)
[2021-01-08] MEDS ORDERED: DOCUSATE SODIUM 100 MG GELCAP PO PRN (08:35)
[2021-01-08] MEDS ORDERED: guaiFENesin DM 200/20 MG-10 ML 10 ML UDC PO PRN (08:35)
[2021-01-08] MEDS ORDERED: ONDANSETRON 4 MG/2 ML VIAL IM/IVP PRN (08:35)
[2021-01-08] MEDS ORDERED: ACETAMINOPHEN 325 MG TAB PO PRN (08:35)
[2021-01-08] MEDS ORDERED: HYDROcodone/APAP 7.5/325 MG 1 TAB PO PRN (08:35)
[2021-01-08] MEDS ORDERED: MORPHINE SULFATE 2 MG/ML SYR IVP PRN (08:35)
[2021-01-08] MEDS ORDERED: GABAPENTIN 100 MG CAP PO SCH (09:00)
[2021-01-08] MEDS ORDERED: NON-FORMULARY ITEM (Duloxetine HCl* (Cymbalta*) 20 MG) PO SCH (09:00)
[2021-01-08] MEDS ORDERED: MORPHINE SULFATE 4 MG/ML SYR IVP PRN (09:05)
[2021-01-08 09:24] LABS: PROTHROMBIN TIME 9.5 secs (10.8-13.4)
[2021-01-08 09:34] LABS: CHOL/HDL RATIO 2.9 (1-4.5); FREE T4 (FREE THYROXINE) 0.82 ng/dL (0.76-1.46); PHOSPHORUS 2.6 mg/dL (2.5-4.9); THYROID STIMULATING HORMONE 0.49 uIU/mL (0.34-3.74)
[2021-01-08] MEDS: carvediloL 3.125 MG TAB PO SCH ×2 (09:35→21:42)
[2021-01-08] MEDS: DULoxetine 30 MG CAPDR PO SCH (09:35)
[2021-01-08] MEDS: ECOTRIN 81 MG TABEC PO SCH (09:36)
[2021-01-08] MEDS: HYDROXYCHLOROQUINE 200 MG TAB PO SCH (09:36)
[2021-01-08] MEDS: FUROSEMIDE 40 MG TAB PO SCH ×2 (09:37→17:07)
[2021-01-08] MEDS: GLIMEPIRIDE 2 MG TAB PO SCH (09:37)
[2021-01-08] MEDS: PANTOPRAZOLE 40 MG TABEC PO SCH (09:39)
[2021-01-08] MEDS: lisinopriL 5 MG TAB PO SCH (09:39)
[2021-01-08] MEDS: GABAPENTIN 100 MG CAP PO SCH ×3 (09:53→17:08)
[2021-01-08] MEDS: GABAPENTIN 300 MG CAP PO SCH ×2 (12:48→17:07)
[2021-01-08] MEDS: methylPREDNISolone SS 40 MG/ML VIAL IVP SCH ×2 (12:49→21:52)
[2021-01-08] MEDS: oxyCODONE/APAP 5/325 MG 1 TAB TAB PO PRN ×2 (12:50→22:01)
[2021-01-08 13:06] VITALS: BP 140/80
[2021-01-08] MEDS: HYDROmorphone 1 MG/ML AMP IVP PRN (15:58)
[2021-01-08 16:00] VITALS: BP 132/70
[2021-01-08 20:00] VITALS: BP 132/68
[2021-01-09 00:17] LABS: APPEARANCE,URINE CLEAR (CLEAR); BILIRUBIN,URINE NEGATIVE (NEGATIVE); BLOOD, URINE NEGATIVE (NEGATIVE); COLOR,URINE YELLOW (YELLOW); LEUKOCYTE ESTERASE ,URINE NEGATIVE (NEGATIVE); NITRITE, URINE NEGATIVE (NEGATIVE); UGLUCOSE NEGATIVE (NEGATIVE)
[2021-01-09 00:27] LABS: BARBITURATE, URINE NEGATIVE ng/ml (NEG <=200); BENZODIAZEPINE, URINE NEGATIVE ng/mL (NEG <=200); CANNABINOID, URINE POSITIVE ng/mL (NEG <=50); COCAINE, URINE NEGATIVE ng/mL (NEG <=300); OPIATE, URINE POSITIVE ng/mL (NEG <=2000); PHENCYCLIDINE SCREEN,URINE NEGATIVE ng/mL (NEG <=25)
[2021-01-09 04:00] VITALS: BP 124/80
[2021-01-09] MEDS: NACL 0.9% 1,000 ML IV SCH ×3 (05:20→17:57)
[2021-01-09] MEDS: methylPREDNISolone SS 40 MG/ML VIAL IVP SCH ×3 (05:58→20:44)
[2021-01-09] MEDS: HYDROmorphone 1 MG/ML AMP IVP PRN ×2 (05:59→21:04)
[2021-01-09 06:07] LABS: T4 (THYROXINE) 6.2 ug/dL (4.5-12.0)
[2021-01-09] MEDS: oxyCODONE/APAP 5/325 MG 1 TAB TAB PO PRN ×2 (08:59→13:27)
[2021-01-09 09:00] LABS: BASOPHILS % (AUTO) 0.1 % (0.0-2.0); HEMATOCRIT 40.2 % (36-52); HEMOGLOBIN 13.2 g/dL (12.0-18.0); LYMPHOCYTES % (AUTO) 8.5 % (20.5-51.1); MEAN CORPUSCULAR HEMOGLOBIN 32 pg (27-31); MEAN CORPUSCULAR HGB CONC 33 g/dL (33-37); MEAN CORPUSCULAR VOLUME 97.6 fL (80-94); MONOCYTES # (AUTO) 0.4 K/uL (0.8-1.0); MONOCYTES % (AUTO) 3.4 % (1.7-9.3); NEUTROPHILS # (AUTO) 10.4 K/uL (1.8-7.7); PLATELET COUNT (AUTO) 189 K/uL (140-450); RED BLOOD CELL COUNT(AUTO) 4.12 MIL/uL (4.20-6.10); RED CELL DISTRIBUTION WIDTH 13.7 % (11.6-13.7); WHITE BLOOD COUNT (AUTO) 11.8 K/uL (4.8-10.8)
[2021-01-09] MEDS: HYDROXYCHLOROQUINE 200 MG TAB PO SCH (09:00)
[2021-01-09] MEDS: carvediloL 3.125 MG TAB PO SCH ×2 (09:00→20:50)
[2021-01-09] MEDS: GABAPENTIN 300 MG CAP PO SCH ×3 (09:00→16:48)
[2021-01-09] MEDS: FUROSEMIDE 40 MG TAB PO SCH ×2 (09:00→16:47)
[2021-01-09] MEDS: GLIMEPIRIDE 2 MG TAB PO SCH (09:01)
[2021-01-09] MEDS: DULoxetine 30 MG CAPDR PO SCH (09:02)
[2021-01-09] MEDS: ECOTRIN 81 MG TABEC PO SCH (09:02)
[2021-01-09] MEDS: PANTOPRAZOLE 40 MG TABEC PO SCH (09:02)
[2021-01-09] MEDS: lisinopriL 5 MG TAB PO SCH (09:02)
[2021-01-09] MEDS: GABAPENTIN 100 MG CAP PO SCH ×3 (09:04→16:47)
[2021-01-09 09:59] LABS: ANION GAP 16.8 (8-16); CARBON DIOXIDE 24.5 mmol/L (21-32); POTASSIUM 4.3 mmol/L (3.5-5.1)
[2021-01-09 12:00] VITALS: BP 116/66
[2021-01-09 20:00] VITALS: BP 119/75
[2021-01-10] MEDS: ZOLPIDEM 5 MG TAB PO PRN ×2 (02:44→23:56)
[2021-01-10 04:00] VITALS: BP 120/60
[2021-01-10] MEDS: oxyCODONE/APAP 5/325 MG 1 TAB TAB PO PRN ×2 (04:09→15:19)
[2021-01-10] MEDS: methylPREDNISolone SS 40 MG/ML VIAL IVP SCH ×3 (04:09→22:00)
[2021-01-10] MEDS: NACL 0.9% 1,000 ML IV SCH ×3 (06:20→18:55)
[2021-01-10 08:00] VITALS: BP 134/60
[2021-01-10 08:39] LABS: HEMOGLOBIN 13.5 g/dL (12.0-18.0); LYMPHOCYTES # (AUTO) 0.8 K/uL (2.0-11.5); LYMPHOCYTES % (AUTO) 7.2 % (20.5-51.1); MEAN CORPUSCULAR HEMOGLOBIN 32 pg (27-31); MEAN CORPUSCULAR HGB CONC 33 g/dL (33-37); MEAN CORPUSCULAR VOLUME 96.3 fL (80-94); MONOCYTES # (AUTO) 0.3 K/uL (0.8-1.0); MONOCYTES % (AUTO) 2.6 % (1.7-9.3); NEUTROPHILS # (AUTO) 10.7 K/uL (1.8-7.7); NEUTROPHILS % (AUTO) 90.2 % (42.2-75.2); PLATELET COUNT (AUTO) 210 K/uL (140-450); RED BLOOD CELL COUNT(AUTO) 4.25 MIL/uL (4.20-6.10); RED CELL DISTRIBUTION WIDTH 13.5 % (11.6-13.7); WHITE BLOOD COUNT (AUTO) 11.8 K/uL (4.8-10.8)
[2021-01-10 08:56] LABS: ANION GAP 9.5 (8-16); CARBON DIOXIDE 30.7 mmol/L (21-32); CREATININE 0.9 mg/dL (0.6-1.3); POTASSIUM 4.2 mmol/L (3.5-5.1)
[2021-01-10] MEDS: GABAPENTIN 300 MG CAP PO SCH ×4 (09:00→17:08)
[2021-01-10] MEDS ORDERED: CRUSHER, PILL MC ONE (09:57)
[2021-01-10] MEDS: GLIMEPIRIDE 2 MG TAB PO SCH (09:58)
[2021-01-10] MEDS: FUROSEMIDE 40 MG TAB PO SCH ×2 (09:59→17:08)
[2021-01-10] MEDS: HYDROXYCHLOROQUINE 200 MG TAB PO SCH (09:59)
[2021-01-10] MEDS: lisinopriL 5 MG TAB PO SCH (09:59)
[2021-01-10] MEDS: PANTOPRAZOLE 40 MG TABEC PO SCH (09:59)
[2021-01-10] MEDS: carvediloL 3.125 MG TAB PO SCH ×2 (09:59→22:00)
[2021-01-10] MEDS: DULoxetine 30 MG CAPDR PO SCH (09:59)
[2021-01-10] MEDS: GABAPENTIN 100 MG CAP PO SCH ×3 (09:59→17:08)
[2021-01-10] MEDS: ECOTRIN 81 MG TABEC PO SCH (09:59)
[2021-01-10] MEDS: HYDROmorphone 1 MG/ML AMP IVP PRN ×2 (10:01→22:14)
[2021-01-10 16:00] VITALS: BP 130/73
[2021-01-10 21:06] VITALS: BP 124/64
[2021-01-11] MEDS: methylPREDNISolone SS 40 MG/ML VIAL IVP SCH ×3 (04:40→20:46)
[2021-01-11 05:06] VITALS: BP 134/69
[2021-01-11 06:54] LABS: HEMATOCRIT 44.1 % (36-52); HEMOGLOBIN 14.5 g/dL (12.0-18.0); LYMPHOCYTES # (AUTO) 0.8 K/uL (2.0-11.5); LYMPHOCYTES % (AUTO) 6.6 % (20.5-51.1); MEAN CORPUSCULAR HEMOGLOBIN 32 pg (27-31); MEAN CORPUSCULAR HGB CONC 33 g/dL (33-37); MEAN CORPUSCULAR VOLUME 98.2 fL (80-94); MONOCYTES # (AUTO) 0.6 K/uL (0.8-1.0); MONOCYTES % (AUTO) 5.2 % (1.7-9.3); NEUTROPHILS # (AUTO) 10.9 K/uL (1.8-7.7); NEUTROPHILS % (AUTO) 88.2 % (42.2-75.2); PLATELET COUNT (AUTO) 224 K/uL (140-450); RED BLOOD CELL COUNT(AUTO) 4.49 MIL/uL (4.20-6.10); RED CELL DISTRIBUTION WIDTH 13.5 % (11.6-13.7); WHITE BLOOD COUNT (AUTO) 12.4 K/uL (4.8-10.8)
[2021-01-11 06:55] LABS: ANION GAP 12.7 (8-16); CARBON DIOXIDE 28.2 mmol/L (21-32); POTASSIUM 3.9 mmol/L (3.5-5.1)
[2021-01-11] MEDS: NACL 0.9% 1,000 ML IV SCH ×3 (07:20→19:50)
[2021-01-11] MEDS: DULoxetine 30 MG CAPDR PO SCH (08:46)
[2021-01-11] MEDS: PANTOPRAZOLE 40 MG TABEC PO SCH (08:46)
[2021-01-11] MEDS: ECOTRIN 81 MG TABEC PO SCH (08:47)
[2021-01-11] MEDS: lisinopriL 5 MG TAB PO SCH (08:48)
[2021-01-11] MEDS: GABAPENTIN 300 MG CAP PO SCH ×3 (08:48→17:22)
[2021-01-11] MEDS: GLIMEPIRIDE 2 MG TAB PO SCH (08:48)
[2021-01-11] MEDS: FUROSEMIDE 40 MG TAB PO SCH ×2 (08:48→17:22)
[2021-01-11] MEDS: HYDROXYCHLOROQUINE 200 MG TAB PO SCH (08:49)
[2021-01-11] MEDS: carvediloL 3.125 MG TAB PO SCH ×2 (08:49→20:46)
[2021-01-11] MEDS: GABAPENTIN 100 MG CAP PO SCH ×3 (08:49→17:23)
[2021-01-11] MEDS: HYDROmorphone 1 MG/ML AMP IVP PRN ×2 (12:14→20:52)
[2021-01-11 20:00] VITALS: BP 126/59
[2021-01-11] MEDS: ZOLPIDEM 5 MG TAB PO PRN (22:45)
[2021-01-12 04:00] VITALS: BP 125/77
[2021-01-12] MEDS: methylPREDNISolone SS 40 MG/ML VIAL IVP SCH ×2 (04:58→13:00)
[2021-01-12] MEDS: HYDROmorphone 1 MG/ML AMP IVP PRN (05:15)
[2021-01-12 08:00] VITALS: BP 135/70
[2021-01-12] MEDS ORDERED: PRED10TA5 PO (08:19)
[2021-01-12] MEDS ORDERED: OXYC-163 PO (08:19)
[2021-01-12] MEDS: NACL 0.9% 1,000 ML IV SCH (08:35)
[2021-01-12] MEDS ORDERED: MORPHINE SULFATE 2 MG/ML SYR IM PRN (09:10)
[2021-01-12] MEDS: GABAPENTIN 300 MG CAP PO SCH ×2 (09:29→13:31)
[2021-01-12] MEDS: carvediloL 3.125 MG TAB PO SCH (09:29)
[2021-01-12] MEDS: GABAPENTIN 100 MG CAP PO SCH ×2 (09:30→13:31)
[2021-01-12] MEDS: GLIMEPIRIDE 2 MG TAB PO SCH (09:30)
[2021-01-12] MEDS: ECOTRIN 81 MG TABEC PO SCH (09:31)
[2021-01-12] MEDS: DULoxetine 30 MG CAPDR PO SCH (09:31)
[2021-01-12] MEDS: PANTOPRAZOLE 40 MG TABEC PO SCH (09:31)
[2021-01-12] MEDS: lisinopriL 5 MG TAB PO SCH (09:31)
[2021-01-12] MEDS: HYDROXYCHLOROQUINE 200 MG TAB PO SCH (09:31)
[2021-01-12] MEDS: FUROSEMIDE 40 MG TAB PO SCH (09:32)
[2021-01-12] MEDS ORDERED: oxyCODONE/APAP 5/325 MG 1 TAB TAB PO PRN (11:10)
[2021-01-12 13:54] LABS: BASOPHILS % (AUTO) 0.2 % (0.0-2.0); HEMATOCRIT 41.7 % (36-52); HEMOGLOBIN 13.8 g/dL (12.0-18.0); LYMPHOCYTES # (AUTO) 0.9 K/uL (2.0-11.5); LYMPHOCYTES % (AUTO) 8.3 % (20.5-51.1); MEAN CORPUSCULAR HEMOGLOBIN 32 pg (27-31); MEAN CORPUSCULAR HGB CONC 33 g/dL (33-37); MONOCYTES # (AUTO) 0.9 K/uL (0.8-1.0); MONOCYTES % (AUTO) 8.7 % (1.7-9.3); NEUTROPHILS # (AUTO) 8.9 K/uL (1.8-7.7); NEUTROPHILS % (AUTO) 82.8 % (42.2-75.2); PLATELET COUNT (AUTO) 216 K/uL (140-450); RED CELL DISTRIBUTION WIDTH 13.2 % (11.6-13.7); WHITE BLOOD COUNT (AUTO) 10.8 K/uL (4.8-10.8)
[2021-01-12 14:13] LABS: ANION GAP 9.1 (8-16); CARBON DIOXIDE 31.6 mmol/L (21-32); POTASSIUM 3.7 mmol/L (3.5-5.1)
== END 2021-01-12 14:30 | disposition home or self-care (01) | DRG 545 ==
LOC: MED 22:29 → MTU 01-08 04:21
PROVIDERS: ADMIT Family Medicine; ATTEND Family Medicine
DX: M06.9 Rheumatoid arthritis, unspecified (principal); I50.43 Acute on chronic combined systolic (congestive) and diastolic (congestive) heart failure; E46 Unspecified protein-calorie malnutrition; Z20.822 Contact with and (suspected) exposure to COVID-19; E11.40 Type 2 diabetes mellitus with diabetic neuropathy, unspecified; I11.0 Hypertensive heart disease with heart failure; F32.9 Major depressive disorder, single episode, unspecified; E78.5 Hyperlipidemia, unspecified; Z88.0 Allergy status to penicillin; Z88.8 Allergy status to other drugs, medicaments and biological substances; Z79.82 Long term (current) use of aspirin; Z79.899 Other long term (current) drug therapy; I25.2 Old myocardial infarction; Z95.0 Presence of cardiac pacemaker; Z59.0 Homelessness; Z91.14 Patient's other noncompliance with medication regimen; Z68.34 Body mass index [BMI] 34.0-34.9, adult
CPT/HCPCS: 36415; 71045; 80048; 80053; 80305; 81003; 82150; 83036; 83690; 83735; 83880; 84100; 84436; 84439; 84443; 84479; 84484; 85025; 85610; 85730; 86430; 87081; 87804; 96374; 96375; 97163-GP; 99285; J1170; J2270; J2405; J2920; J2930

== ENCOUNTER 2021-01-25 13:54 | Emergency (ER) | payer OTHER, MEDICAID ==
[~2021-01-25] VITALS: Ht 167.6 cm; Wt 106.6 kg
[~2021-01-25 13:54] MED LIST changes: +OXYC1TAB PO; +PRED10TA5 PO
[2021-01-25 13:56] VITALS: BP 100/67
--- NOTE | 2021-01-25 14:12 | NUR ---
pt taken to bed 02 via wheelchair.
[2021-01-25 14:53] LABS: BASOPHILS % (AUTO) 0.8 % (0.0-2.0); EOSINOPHILS # (AUTO) 0.1 K/uL (0-0.4); EOSINOPHILS % (AUTO) 2.8 % (0.0-4.0); HEMATOCRIT 37.3 % (36-52); HEMOGLOBIN 12.6 g/dL (12.0-18.0); LYMPHOCYTES # (AUTO) 1.3 K/uL (2.0-11.5); LYMPHOCYTES % (AUTO) 24.8 % (20.5-51.1); MEAN CORPUSCULAR HEMOGLOBIN 32 pg (27-31); MEAN CORPUSCULAR HGB CONC 34 g/dL (33-37); MONOCYTES # (AUTO) 0.4 K/uL (0.8-1.0); MONOCYTES % (AUTO) 7.1 % (1.7-9.3); NEUTROPHILS # (AUTO) 3.5 K/uL (1.8-7.7); NEUTROPHILS % (AUTO) 64.5 % (42.2-75.2); PLATELET COUNT (AUTO) 196 K/uL (140-450); RED BLOOD CELL COUNT(AUTO) 3.88 MIL/uL (4.20-6.10); RED CELL DISTRIBUTION WIDTH 13.5 % (11.6-13.7); WHITE BLOOD COUNT (AUTO) 5.4 K/uL (4.8-10.8)
--- NOTE | 2021-01-25 14:58 | NUR ---
60 Y/O M BIB SELF FROM HOME, PATIENT PRESENTS TO ED WITH C/O FEET PAIN, REDNESS, SWELLING X 3 DAYS. BLOOD SUGAR 118 AT THIS TIME. DENIES N/V/D; SKIN IS FLUSHED/WARM/MOIST; AAOX4 WITH EVEN AND STEADY GAIT; LUNGS CLEAR BL; HR EVEN AND REGULAR; PT DENIES ANY FEVER, CP, SOB, OR COUGH AT THIS TIME; PATIENT STATES PAIN OF 10/10 AT THIS TIME; VSS; PATIENT POSITIONED FOR COMFORT; HOB ELEVATED; BEDRAILS UP X2; BED DOWN. ER MD MADE AWARE OF PT STATUS. PMH: DM,HTN, CHF, TX, PACE MAKER, KNEE, SHOULDER, LUMBAR SPINE FUSION IN 11/2017 ALLERGY: PENICILLIN, COLESEVELAM, SIMVASTATIN
[2021-01-25 15:14] LABS: ANION GAP 8.3 (8-16); CARBON DIOXIDE 33.5 mmol/L (21-32); CREATININE 1.1 mg/dL (0.6-1.3)
[2021-01-25 15:16] LABS: POTASSIUM 2.8 mmol/L (3.5-5.1)
[2021-01-25] MEDS ORDERED: POTA-599 PO (15:27)
[2021-01-25] MEDS ORDERED: POTASSIUM CHLORIDE 10 MEQ TABER PO SCH ×2 (15:28→16:00)
[2021-01-25 16:13] VITALS: BP 100/67
--- NOTE | 2021-01-25 16:13 | NUR ---
PT LEFT WITHOUT SIGNING AND DISCHARGE PAPER WORK.
== END 2021-01-25 16:10 | disposition home or self-care (01) ==
LOC: MED 13:54
DX: R60.0 Localized edema (principal); M79.604 Pain in right leg; M79.605 Pain in left leg; E11.9 Type 2 diabetes mellitus without complications; I11.9 Hypertensive heart disease without heart failure; Z95.0 Presence of cardiac pacemaker; Z88.0 Allergy status to penicillin; Z88.8 Allergy status to other drugs, medicaments and biological substances
CPT/HCPCS: 36415; 80048; 81002; 85025; 99283

== ENCOUNTER 2021-07-17 21:49 | Emergency (ER) | payer OTHER ==
[~2021-07-17] VITALS: Ht 170.2 cm; Wt 104.3 kg
[~2021-07-17 21:49] MED LIST changes: -LISI-648 PO; +LISI5TAB24 PO; +OXYC-304 PO; -OXYC1TAB PO; +POTA-599 PO; +POTA8TAB19 PO; -POTA8TER12 PO
[2021-07-17 22:33] VITALS: BP 119/56
[2021-07-17] MEDS ORDERED: METOCLOPRAMIDE 10 MG/2 ML INJ VIAL IVP ONE (23:30)
[2021-07-17] MEDS ORDERED: NACL 0.9% 1,000 ML IV ONE (23:30)
[2021-07-17] MEDS ORDERED: KETOROLAC 30 MG/ML VIAL IVP ONE (23:30)
[2021-07-17] MEDS ORDERED: diphenhydrAMINE 50 MG/ML VIAL IVP ONE (23:30)
--- NOTE | 2021-07-18 00:10 | NUR ---
TO BED 08 AMBULATORY
--- NOTE | 2021-07-18 00:45 | NUR ---
TRIED TO START IV. CONTACTED CHARGE FOR HELP.
--- NOTE | 2021-07-18 01:25 | NUR ---
PT BIB SELF C/O HEADACHE . PT STATES PASSED OUT AND FELL ON HIS HEAD. PT STATES HE HAS FALLEN 5 TIMES. TODAY HE SAID HE PASSED OUT IN CAR THEN WOKE UP AND DROVE HIMSELF TO ER. PT SAID THE BLACKOUTS HAPPEN OFTEN. MED RX: SLEEP APNEA PACEMAKER CHF PREVIOUS DIABETIC SOCIAL RX: SMOKES WEED DAILY, 1 BEER A DAY, DENIES OTHER DRUG USE
[2021-07-18] MEDS ORDERED: METOCLOPRAMIDE 10 MG/2 ML INJ VIAL IM ONE (01:35)
[2021-07-18] MEDS ORDERED: diphenhydrAMINE 50 MG/ML VIAL IM ONE (01:35)
[2021-07-18] MEDS ORDERED: KETOROLAC 30 MG/ML VIAL IM ONE (01:35)
--- NOTE | 2021-07-18 03:30 | NUR ---
SUCCESSFUL IV INSERTION VIA US
--- NOTE | 2021-07-18 03:31 | NUR ---
NORMAL SALINE , GUME STOUT GIVEN VIA IV GIVEN BY ARIA POSEY
--- NOTE | 2021-07-18 05:06 | NUR ---
TRIED TO DRAW LABS AND TRIED TO DRAW LABS
[2021-07-18] MEDS ORDERED: IMI50 PO (05:40)
[2021-07-18] MEDS ORDERED: NAPR-54 PO (05:42)
--- NOTE | 2021-07-18 07:30 | NUR ---
RECEIVED PT IN GURNEY ASLEEP BUT EASILY AROUSABLE. NO S/S PAIN OR DISCOMFORT. PENDING LABS. NO ACUTE DISTRESS NOTED. SAFETY MAINTAINED
--- NOTE | 2021-07-18 07:51 | NUR ---
UNABLE TO OBTAIN BLOOD FOR LABS. DR FELICIANO MADE AWARE AND ORDERS TO CANCEL LABS.
[2021-07-18 09:38] VITALS: BP 145/70
--- NOTE | 2021-07-18 09:38 | NUR ---
Patient discharged with v/s stable. Written and verbal after care instructions given and explained. Patient verbalized understanding. Ambulatory with steady gait. All questions addressed prior to discharge. Advised to follow up with PMD.
== END 2021-07-18 09:38 | disposition home or self-care (01) ==
LOC: MED 21:49
DX: G43.909 Migraine, unspecified, not intractable, without status migrainosus (principal); E11.40 Type 2 diabetes mellitus with diabetic neuropathy, unspecified; I11.0 Hypertensive heart disease with heart failure; I50.9 Heart failure, unspecified
CPT/HCPCS: 70450; 81002; 96372; 99285; J1200; J1885; J2765